=== PATIENT | female | born 1960 | race Caucasian/White ===

== ENCOUNTER 2017-02-11 20:17 | Emergency (ER) | payer OTHER, MEDICARE ==
[~2017-02-11] VITALS: Ht 152.4 cm; Wt 97.5 kg
[~2017-02-11 20:17] MED LIST: DELTASONE20 MG PO; GLIMEPIRIDE4 M1 PO; GUAIFENESIN-COD10 ML PO; IPRAT-ALBUT 0.5-3 ML INH; LEVOFLOXACIN500 M1 PO; LOSARTAN POTASS50 M1 PO; METFORMIN HCL1000 M1 PO; PEPCID20 M1 PO; PIOGLITAZONE HC45 M1 PO; PREDNISONE 10MG10 M1 PO; PREDNISONE50 MG PO; PROAIR HFA0.09 MG/Ac PO; PROMETHAZINE PO; PROMETHAZINE-C118 ML PO; PROVENTIL0.09 MG/A1 INH; VENTOLIN HFA18 GM INH; ZITHROMAX250 M2 PO; [UNRECOGNIZED DRUG - OTHER] PO
--- NOTE | 2017-02-11 20:43 | ED DYSPNEA/ASTHMA COMPLAINT ---
History of Present Illness General Chief Complaint: Dyspnea (COPD, CHF, Other) Stated Complaint: PT HAS SOB AND SWELLING OF BOTH LEG Source: patient Exam Limitations: no limitations Vital Signs & Intake/Output Vital Signs & Intake/Output Vital Signs Date Time Temp Pulse Resp B/P B/P Pulse O2 O2 Flow FiO2 Mean Ox Delivery Rate 02/11 2339 98.1 94 18 154/70 93 Room Air 02/11 2246 97.8 85 22 159/71 93 Room Air 02/11 2110 95 Room Air 02/11 2030 97.3 106 24 157/86 95 ED Intake and Output 02/12 0000 02/11 1200 Intake Total Output Total Balance Patient 215 lb Weight Allergies Coded Allergies: ibuprofen (From Advil) (Severe, HIVES 07/17/16) latex (Intermediate, RASH 07/17/16) methylprednisolone (From Solu-Medrol) (Intermediate, GI UPSET 07/17/16) Reconcile Medications Albuterol Sulfate (Ventolin Hfa) 90 MCG HFA.AER.AD 2 PUF INH Q4-6 PRN PRN WHEEZING Albuterol Sulfate (Ventolin Hfa) 90 MCG HFA.AER.AD 2 PUF INH Q4-6 PRN PRN SOB Cephalexin (Keflex) 500 MG CAPSULE 1 CAP PO 4 TIMES/DAY CELLULITIS Famotidine (Pepcid) 20 MG TABLET 1 TAB PO BID acid reflux Glimepiride 4 MG TABLET 1 TAB PO DAILY DM (Reported) Ipratropium/Albuterol Sulfate (Iprat-Albut 0.5-3(2.5) MG/3 Ml) 0.5 MG-3 MG (2.5 MG BASE)/3 ML AMPUL.NEB 1 INH INH BIDP PRN ASTHMA AND BRONCHITIS (Reported) Levofloxacin 500 MG TABLET 1 TAB PO DAILY BRONCHITIS (Reported) Losartan Potassium 50 MG TABLET 1 TAB PO DAILY B/P (Reported) Metformin HCl 1,000 MG TABLET 1 TAB PO BID DM (Reported) Pioglitazone HCl 45 MG TABLET 1 TAB PO DAILY DM (Reported) Prednisolone 15 MG/5 ML SOLUTION 10 ML PO QDAY ASTHMA Prednisone (Deltasone) 20 MG TABLET 3 TAB PO DAILY ASTHMA Promethazine HCl/Codeine (Promethazine-Codeine Syrup) 6.25 MG-10 MG/5 ML SYRUP 5 ML PO Q4-6 PRN cough Sulfamethoxazole/Trimethoprim (Bactrim Ds Tablet) 800 MG-160 MG TABLET 1 TAB PO BID CELLULITIS Triage Note: PER PT SEEN AT [facility] FOR SOB AND BLE SWELLING X 2-3 MONTHS BILAT LOWER EXTREMITIES LEGS RED WARM AND SWOLLEN, Triage Nurses Notes Reviewed? yes Onset: Gradual Duration: day(s): Timing: recent history Severity: mild, moderate Activities at Onset: none Prior Episodes/Possible Cause: occasional episodes Modifying Factors: Improves With: rest. Associated Symptoms: cough, wheezing, LEFT LEG REDNESS HPI: 56-year-old woman history of asthma referred from the urgent care center for left leg redness and swelling as well as cough and wheeze. The patient states that she has had coughing and wheezing for the past week or so. She continues to smoke. She has no fever chills chest pain or sputum. She also notes that her left lower extremity has had some redness and tenderness around the rajan for the past 2-3 weeks. It has slowly gotten worse. She is otherwise well and has no other concerns Past History Travel History Traveled to [place] past 21 day No Medical History Any Pertinent Medical History? 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 No Review of Systems Review of Systems Constitutional: Reports: no symptoms. EENTM: Reports: no symptoms. Respiratory: Reports: no symptoms. Cardiovascular: Reports: no symptoms. GI: Reports: no symptoms. Genitourinary: Reports: no symptoms. Musculoskeletal: Reports: no symptoms. Skin: Reports: no symptoms. Neurological/Psychological: Reports: no symptoms. Hematologic/Endocrine: Reports: no symptoms. Immunologic/Allergic: Reports: no symptoms. All Other Systems: Reviewed and Negative Physical Exam Physical Exam General Appearance: well developed/nourished, mild distress Head: atraumatic, normal appearance Eyes: Bilateral: normal appearance. Ears, Nose, Throat: normal pharynx, normal ENT inspection Neck: normal inspection, supple, full range of motion Respiratory: wheezing Cardiovascular: regular rate/rhythm Gastrointestinal: normal bowel sounds, soft, non-tender Extremities: LEFT LEG WITH 1+ PITTING EDEMA. dIFFUSE INDURATION APPROXIMATELY 15 CM X 10 CM. nO LYMPHANGITIC STREAKING. tHE AREA OF INDURATION AND ERYTHEMA IS SLIGHTLY TENDER TO PALPATION AND WARM. 2+ DISTAL PULSE Neurologic/Psych: no motor/sensory deficits, awake, alert, oriented x 3 Skin: intact, normal color, warm/dry Core Measures ACS in differential dx? No Severe Sepsis Present: No Septic Shock Present: No Progress Differential Diagnosis: copd VERSUS ASTHMA VERSUS chf. pATIENT ALSO LIKELY HAS CELLULITIS i DOUBT dvt. Plan of Care: Orders Procedure Date/time Status TROPONIN LEVEL 02/11 2041 Complete D-DIMER 02/11 2041 Complete COMPREHENSIVE METABOLIC PANEL 02/11 2041 Complete CBC WITHOUT DIFFERENTIAL 02/11 2041 Complete EKG 02/11 2019 Active Laboratory Tests 02/11/172109: Anion Gap 11, Estimated GFR > 60, BUN/Creatinine Ratio 25.0, Glucose 168 H, Calcium 9.6, Total Bilirubin 0.9, AST 24, ALT 39, Alkaline Phosphatase 76, Troponin I < 0.01, Total Protein 6.7, Albumin 4.1, Globulin 2.6, Albumin/ Globulin Ratio 1.6, D-Dimer High Sensitivty 270 H, CBC w Diff NO MAN DIFF REQ, RBC 3.65 L, MCV 89.5, MCH 29.3, RDW 17.4 H, MPV 9.1, Gran % 73.0, Lymphocytes % 21.5, Monocytes % 4.2, Eosinophils % 1.2, Basophils % 0.1, Absolute Granulocytes 8.3 H, Absolute Lymphocytes 2.5, Absolute Monocytes 0.5, Absolute Eosinophils 0.1, Absolute Basophils 0, PUBS MCHC 32.7 L Diagnostic Imaging: Viewed by Me: Radiology Read, CT Scan. Discussed w/RAD: Radiology Read, CT Scan. Radiology Impression: ct angio... no pe... air trapping... full report below. CXR Impression: no acute abnormality, no infiltrates, normal size heart, normal mediastinum Initial ED EKG: normal axis, normal intervals, normal p-waves, normal QRS complex, normal sinus rhythm Comments: PATIENT: RAFAELA SOLIS PRESENT AGE: 56 PATIENT ACCOUNT NO: [id number] : 56 LOCATION: [facility] ORDERING PHYSICIAN: OTF RAMEY MD SERVICE DATE: 02/11/17 EXAM TYPE: CAT - CTA CHEST-PULMONARY EMBOLISM EXAMINATION: CT ANGIOGRAM OF THE CHEST WITH AND WITHOUT CONTRAST (CT PULMONARY ANGIOGRAM FOR PE) CLINICAL INFORMATION: Dyspnea, positive d-dimer COMPARISON: Chest x-ray from earlier today TECHNIQUE: Prior to contrast administration, noncontrast localization images were obtained. Subsequently, multidetector volumetric imaging was performed from the thoracic inlet to below the diaphragms following the administration of 95 mL Optiray 320 intravenous contrast. No contrast reaction reported. Sagittal, coronal, and MIP oblique sagittal reformatted images were obtained on the CT workstation, uploaded to PACS, and reviewed. Total exam dose-length product 524.66 mGy-cm. FINDINGS: QUALITY OF STUDY/CONTRAST BOLUS: Satisfactory PULMONARY ARTERIES: No central or segmental pulmonary emboli are seen. There is limited assessment of the distal vasculature secondary to respiratory motion artifact. THORACIC AORTA: No aneurysm or dissection. Scattered atherosclerotic calcifications are present. LUNG: There is a mosaic attenuation pattern of lung attenuation, suggesting heterogeneous air trapping, predominantly at the bases. No dense consolidation is seen. PLEURA: No pleural effusion or pneumothorax. MEDIASTINUM: The visualized thyroid gland is unremarkable. There are multiple scattered mediastinal lymph nodes measuring up to the upper limits of normal in size. Cardiac size appears mildly enlarged. No significant pericardial effusion. Coronary artery calcifications are present. No evidence of septal bowing or right heart strain. CHEST WALL/AXILLA: No axillary or internal mammary lymphadenopathy. OSSEOUS STRUCTURES: Degenerative changes are noted in the spine. UPPER ABDOMEN: Unremarkable. No reflux of contrast into the hepatic veins to suggest elevated right heart pressures. IMPRESSION: 1. No pulmonary embolus identified. 2. Heterogeneous air trapping, most prominently at the lung bases. No dense consolidation. 3. Multiple mildly prominent mediastinal lymph nodes which are nonspecific and may be reactive. VTE: negative DICTATED BY: GE SOLO MD DATE/TIME DICTATED:02/11/172341 CERTIFIED ADAPTIVE PHYSICAL EDUCATOR:MICHAEL DATE/TIME TRANSCRIBED:02/11/172341 CONFIDENTIAL, DO NOT COPY WITHOUT APPROPRIATE AUTHORIZATION. <Electronically signed in Other Vendor System> SIGNED BY: GE SOLO MD 02/11/17 [id number] PATIENT: RAFAELA SOLIS PRESENT AGE: 56 PATIENT ACCOUNT NO: [id number] : 56 LOCATION: [facility] ORDERING PHYSICIAN: OTF RAMEY MD SERVICE DATE: 02/11/17 EXAM TYPE: RAD - XRY-PORTABLE CHEST XRAY EXAMINATION: XR PORTABLE CHEST CLINICAL INFORMATION: Dyspnea. COMPARISON: Chest x-ray 07/17/2016. TECHNIQUE: Portable frontal view of the chest was obtained. FINDINGS: The lungs are well-expanded and clear without focal airspace consolidation. No pleural effusions or pneumothoraces are identified. Cardiomediastinal contours are stable. Soft tissues are unremarkable. No acute osseous abnormality is identified. IMPRESSION: No acute pulmonary process. DICTATED BY: ЕКАТЕРИНА KRISHNA MD DATE/TIME DICTATED:02/11/172114 CERTIFIED ADAPTIVE PHYSICAL EDUCATOR:MICHAEL DATE/TIME TRANSCRIBED:02/11/172114 CONFIDENTIAL, DO NOT COPY WITHOUT APPROPRIATE AUTHORIZATION. <Electronically signed in Other Vendor System> SIGNED BY: ЕКАТЕРИНА KRISHNA MD 02/11/172121 Departure Departure Disposition: HOME OR SELF CARE Condition: Stable Clinical Impression Primary Impression: Cellulitis Secondary Impressions: Bronchitis Referrals: TY PIZARRO MD Departure Forms: Customer Survey General Discharge Information Prescriptions: Current Visit Scripts Cephalexin (Keflex) 1 CAP PO 4 TIMES/DAY #40 CAP Sulfamethoxazole/Trimethoprim (Bactrim Ds Tablet) 1 TAB PO BID #20 TAB Prednisolone 10 ML PO QDAY #40 ML Albuterol Sulfate (Ventolin Hfa) 2 PUF INH Q4-6 PRN PRN WHEEZING #1 INHAL Ref 1 Comments pt feeling well at discharge... pt will return on tuesday evening to assess her lert lower extremitiy cellulitis.pt with a benign workup and otherwise safe for discharge. Critical Care Note Critical Care Note Critical Care Time: non-applicable
[2017-02-11] MEDS ORDERED: KEFLEX500 M1 PO (21:11)
[2017-02-11] MEDS ORDERED: PREDNISOLO15 MG/5 M4 PO (21:11)
[2017-02-11] MEDS ORDERED: BACTRIM DS TAB1 EACH PO (21:11)
[2017-02-11] MEDS ORDERED: VENTOLIN HFA18 GM INH (21:11)
[2017-02-11 21:16] LABS: ABSOLUTE BASOPHIL COUNT 0 /CUMM (0.0-0.2); ABSOLUTE EOSINOPHIL COUNT 0.1 /CUMM (0.0-0.7); ABSOLUTE GRANULOCYTE CT 8.3 /CUMM (1.4-6.5); ABSOLUTE LYMPH COUNT 2.5 /CUMM (1.2-3.4); ABSOLUTE MONOCYTE COUNT 0.5 /CUMM (0.10-0.60); BASOPHIL % 0.1 % (0.0-2.0); EOSINOPHIL % 1.2 % (0-5); HEMATOCRIT 32.6 % (37-47); MEAN CORPUSCULAR HGB 29.3 PG (27.0-31.0); MEAN CORPUSCULAR HGB CONC 32.7 G/DL (33.0-37.0); MEAN CORPUSCULAR VOLUME 89.5 FL (81.0-99.0); MEAN PLATELET VOLUME 9.1 FL (7.4-10.4); PLATELET COUNT 235 /CUMM (130-400); RBC DISTRIBUTION WIDTH 17.4 % (11.5-14.5); RED BLOOD CELL CT 3.65 /CUMM (4.20-5.40); WHITE BLOOD CELL COUNT 11.4 /CUMM (4.8-10.8)
--- NOTE | 2017-02-11 21:22 | RADIOLOGY REPORT ---
EXAMINATION: XR PORTABLE CHEST CLINICAL INFORMATION: Dyspnea. COMPARISON: Chest x-ray 07/17/2016. TECHNIQUE: Portable frontal view of the chest was obtained. FINDINGS: The lungs are well-expanded and clear without focal airspace consolidation. No pleural effusions or pneumothoraces are identified. Cardiomediastinal contours are stable. Soft tissues are unremarkable. No acute osseous abnormality is identified. IMPRESSION: No acute pulmonary process.
[2017-02-11 23:39] VITALS: BP 154/70
--- NOTE | 2017-02-11 23:59 | CT SCAN REPORT ---
EXAMINATION: CT ANGIOGRAM OF THE CHEST WITH AND WITHOUT CONTRAST (CT PULMONARY ANGIOGRAM FOR PE) CLINICAL INFORMATION: Dyspnea, positive d-dimer COMPARISON: Chest x-ray from earlier today TECHNIQUE: Prior to contrast administration, noncontrast localization images were obtained. Subsequently, multidetector volumetric imaging was performed from the thoracic inlet to below the diaphragms following the administration of 95 mL Optiray 320 intravenous contrast. No contrast reaction reported. Sagittal, coronal, and MIP oblique sagittal reformatted images were obtained on the CT workstation, uploaded to PACS, and reviewed. Total exam dose-length product 524.66 mGy-cm. FINDINGS: QUALITY OF STUDY/CONTRAST BOLUS: Satisfactory PULMONARY ARTERIES: No central or segmental pulmonary emboli are seen. There is limited assessment of the distal vasculature secondary to respiratory motion artifact. THORACIC AORTA: No aneurysm or dissection. Scattered atherosclerotic calcifications are present. LUNG: There is a mosaic attenuation pattern of lung attenuation, suggesting heterogeneous air trapping, predominantly at the bases. No dense consolidation is seen. PLEURA: No pleural effusion or pneumothorax. MEDIASTINUM: The visualized thyroid gland is unremarkable. There are multiple scattered mediastinal lymph nodes measuring up to the upper limits of normal in size. Cardiac size appears mildly enlarged. No significant pericardial effusion. Coronary artery calcifications are present. No evidence of septal bowing or right heart strain. CHEST WALL/AXILLA: No axillary or internal mammary lymphadenopathy. OSSEOUS STRUCTURES: Degenerative changes are noted in the spine. UPPER ABDOMEN: Unremarkable. No reflux of contrast into the hepatic veins to suggest elevated right heart pressures. IMPRESSION: 1. No pulmonary embolus identified. 2. Heterogeneous air trapping, most prominently at the lung bases. No dense consolidation. 3. Multiple mildly prominent mediastinal lymph nodes which are nonspecific and may be reactive. VTE: negative
[2017-02-12] MEDS ORDERED: GLIMEPIRIDE4 M1 PO (13:38)
[2017-02-12] MEDS ORDERED: IPRAT-ALBUT 0.5-3 ML IH (13:39)
[2017-02-12] MEDS ORDERED: ACETAMINOPHEN500 M4 PO (13:39)
[2017-02-12] MEDS ORDERED: ALEVE220 M1 PO (13:39)
== END 2017-02-12 00:28 ==
LOC: ERH 20:17
PROVIDERS: Pediatrics
DX: J40 Bronchitis, not specified as acute or chronic (principal); L03.116 Cellulitis of left lower limb
CPT/HCPCS: 1263; 93005; 93010; 96374; J0690; J1100

== ENCOUNTER 2017-02-12 11:34 | Inpatient (IN) | payer OTHER, MEDICARE ==
[~2017-02-12] VITALS: Ht 152.4 cm; Wt 97.3 kg
[~2017-02-12 11:34] MED LIST changes: +BACTRIM DS TAB1 EACH PO; +KEFLEX500 M1 PO; +PREDNISOLO15 MG/5 M4 PO
--- NOTE | 2017-02-12 11:39 | NUR ---
TRIAGE: 56 Y/O FEMALE RETURNS TO THE EMERGENCY DEPARTMENT INSTRUCTED BY DR RAMEY FOR A LEFT VENOUS DOPPLER OF THE LOWER EXTREMITIES TO RULE OUT DVT SECONDARY TO LEFT LOWER EXTREMITY SWELLING. HAS OUTPATIENT REQUISITION IN HAND AT PRESENT. TRANSPORT BY WHEELCHAIR.
--- NOTE | 2017-02-12 12:08 | NUR ---
RECIEVED TO ROOM 21.
--- NOTE | 2017-02-12 12:12 | NUR ---
PT UP TO RESTROOM TO VOID
--- NOTE | 2017-02-12 12:23 | NUR ---
SOB WITH EXERTION . SATS DROPPED LOW 91, UP TO 94% WITH REST. PT WITH NON PRODUCTIVE HACKING COUGH. PALPABLE PEDAL PULSES WITH SOME LEG SWELLING NOTED
--- NOTE | 2017-02-12 12:33 | ED UPPER/LOWER EXTREMITY COMPL ---
History of Present Illness General Chief Complaint: Lower Extremity Problems Stated Complaint: BILATERAL LEG SWELLING Source: patient, old records Exam Limitations: no limitations Vital Signs & Intake/Output Vital Signs & Intake/Output Vital Signs Date Time Temp Pulse Resp B/P B/P Pulse O2 O2 Flow FiO2 Mean Ox Delivery Rate 02/12 1412 95 Nasal 2.0L Cannula 02/12 1332 98.6 98 21 122/78 97 Nasal 2.0L Cannula 02/12 1223 Room Air 02/12 1137 98.5 96 18 129/80 97 Room Air Room Air Allergies Coded Allergies: ibuprofen (From Advil) (Severe, HIVES 07/17/16) latex (Intermediate, RASH 07/17/16) methylprednisolone (From Solu-Medrol) (Intermediate, GI UPSET 07/17/16) Reconcile Medications Acetaminophen (Unknown Strength) TABLET (Unknown Dose) PO PRN PRN PAIN ( Reported) Albuterol Sulfate (Ventolin Hfa) 90 MCG HFA.AER.AD 2 PUF INH Q4-6 PRN PRN WHEEZING Cephalexin (Keflex) 500 MG CAPSULE 1 CAP PO 4 TIMES/DAY CELLULITIS Famotidine (Pepcid) 20 MG TABLET 1 TAB PO BID acid reflux Glimepiride 4 MG TABLET 1 TAB PO BID DIABETES (Reported) Ipratropium/Albuterol Sulfate (Iprat-Albut 0.5-3(2.5) MG/3 Ml) 0.5 MG-3 MG (2.5 MG BASE)/3 ML AMPUL.NEB 1 AMP IH 4 TIMES/DAY WHEEZING/SOB (Reported) Losartan Potassium 50 MG TABLET 1 TAB PO DAILY B/P (Reported) Metformin HCl 1,000 MG TABLET 1 TAB PO BID DM (Reported) Naproxen Sodium (Aleve) (Unknown Strength) CAPSULE (Unknown Dose) PO PRN PRN CHRONIC BACK PAIN (Reported) Pioglitazone HCl 45 MG TABLET 1 TAB PO DAILY DM (Reported) Triage Note: TRIAGE: 56 Y/O FEMALE RETURNS TO THE EMERGENCY DEPARTMENT INSTRUCTED BY DR RAMEY FOR A LEFT VENOUS DOPPLER OF THE LOWER EXTREMITIES TO RULE OUT DVT SECONDARY TO LEFT LOWER EXTREMITY SWELLING. HAS OUTPATIENT REQUISITION IN HAND AT PRESENT. TRANSPORT BY WHEELCHAIR. Triage Nurses Notes Reviewed? yes HPI: 56F PMH HTN, T2DM WITH 3 DAYS OF PROGRESSIVE DYSPNEA ON EXERTION, GENERALIZED WEAKNESS, NON-PRODUCTIVE COUGH, EVALUATED IN ED 1 DAY AGO, NEGATIVE CTA CHEST FOR PE, RETURNED TODAY FOR LE DOPPLER WHICH WAS NEGATIVE FOR DVT. HOWEVER, PATIENT 83% AT REST WITH SEVERE DYSPNEA WITH MINIMAL EXERTION. WALKED TO BATHROOM AND APPEARED SEVERELY SHORT OF BREATH AND LIGHTHEADED, BILATERAL WHEEZING ON EXAM, BILATERAL LOWER EXTREMITY PITTING EDEMA TO KNEES. Past History Travel History Traveled to [place] past 21 day No Medical History Any Pertinent Medical History? 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 No Review of Systems Review of Systems Constitutional: Reports: see HPI. EENTM: Reports: no symptoms. Respiratory: Reports: see HPI. Cardiovascular: Reports: see HPI. Gastrointestinal/Abdominal: Reports: no symptoms. Genitourinary: Reports: no symptoms. Musculoskeletal: Reports: no symptoms. Skin: Reports: no symptoms. Neurological/Psychological: Reports: no symptoms. Hematologic/Endocrine: Reports: no symptoms. Immunological: Reports: no symptoms. All Other Systems: Reviewed and Negative Physical Exam Physical Exam General Appearance: well developed/nourished, alert, awake, moderate distress Head: atraumatic, normal appearance Ears, Nose, Throat: normal pharynx, normal ENT inspection Neck: normal inspection, supple Cardiovascular/Respiratory: regular rate/rhythm, respiratory distress, wheezing Gastrointestinal: NORMAL Back: normal inspection, normal range of motion Neurologic/Tendon: normal sensation, normal motor functions Skin: intact Progress Differential Diagnosis: arterial insufficiency, cellulitis, CHF, compartment syndrome, contusion, dislocation, DVT, fracture, gout, septic arthritis, sprain, tendon injury, COPD, ASTHMA, PE Plan of Care: Orders Procedure Date/time Status Consistent Carbohydrate 2 02/12 D Active OXYGEN SETUP (GEN) 02/12 1402 Active Saline Lock 02/12 1402 Active Misc Message 02/12 1402 Active ED Holding Orders 02/12 1402 Active Admit to inpatient 02/12 1402 Active Vital Signs 02/12 1402 Active Activity/Ambulation 02/12 1402 Active Code Status 02/12 1402 Active AEROSOL (GEN) 02/12 1400 Complete Patient Data 02/12 1358 Active Add-on Test (ER Only) 02/12 1356 Active TRC EVALUATION (GEN) 02/12 1255 Active XRY-CHEST XRAY, PA AND LATERAL 02/12 1255 Active CBC WITHOUT DIFFERENTIAL 02/12 1255 Complete BASIC ELECTROLYTES PLUS BUN&CR 02/12 1255 Complete EKG 02/12 1255 Active Current Medications Sig/John Start time Last Medication Dose Stop Time Status Admin Azithromycin 500 MG DAILY 02/12 1402 UNVr (Zithromax) Sodium Chloride 250 ML (Normal Saline 0.9%) Methylprednisolone 125 MG ONCE ONE 02/12 1300 CAN (Solu Medrol) 02/12 1301 Laboratory Tests 02/12/17 1320: Anion Gap 12, Estimated GFR > 60, BUN/Creatinine Ratio 23.3, CBC w Diff NO MAN DIFF REQ, RBC 3.80 L, MCV 89.4, MCH 29.3, RDW 17.3 H, MPV 9.9, Gran % 91.5 H, Lymphocytes % 6.7 L, Monocytes % 1.6 L, Eosinophils % 0, Basophils % 0.2, Absolute Granulocytes 12.2 H, Absolute Lymphocytes 0.9 L, Absolute Monocytes 0.2, Absolute Eosinophils 0, Absolute Basophils 0, PUBS MCHC 32.8 L WILL ADMIT TO INPATIENT FOR HYPOXIA, SEVERE DYSPNEA, LIKELY COPD EXACERBATION WITH LOWER EXTREMITY EDEMA. WILL OBTAIN CBC, BEP, BNP, CXR, TRC/NEBULIZER TREATMENTS, PREDNISONE (PATIENT ALLERGIC TO SOLUMEDROL), AZITHROMYCIN, LASIX. (MELVA CRUZ,DEJAN) Diagnostic Imaging: Viewed by Me: Radiology Read. Discussed w/RAD: Radiology Read. Radiology Impression: PATIENT: RAFAELA SOLIS PRESENT AGE: 56 PATIENT ACCOUNT NO: [id number] : 56 LOCATION: [facility] ORDERING PHYSICIAN: DEJAN FRYE MD SERVICE DATE: 02/12/17 EXAM TYPE: US - US -UNILATERAL VENOUS DOPPLER EXAMINATION: US TRIPLEX LOWER EXTREMITY, LEFT CLINICAL INFORMATION: Left lower extremity swelling and tenderness. COMPARISON: None. TECHNIQUE: Color-flow triplex imaging with spectral analysis and compression Doppler were performed on the lower extremity. FINDINGS: Respiratory variation, normal compression and augmented flow are noted throughout the left lower extremity. The visualized common femoral vein, proximal greater saphenous vein, femoral vein, profunda femoral vein, popliteal vein and visualized mid calf venous segments show no evidence of deep venous thrombosis. There is no Hanna's cyst. IMPRESSION: Normal triplex scan without evidence of deep venous thrombosis involving the lower extremity. Initial ED EKG: NSR Prior EKG: unchanged Departure Departure Time of Disposition: 1421 Disposition: STILL A PATIENT Condition: Stable Clinical Impression Primary Impression: Dyspnea on exertion Secondary Impressions: Acute exacerbation of COPD with asthma, Acute hypoxemic respiratory failure, Hypervolemia Referrals: REBECCA SANCHEZ,EDMUND Moy (PCP/Family) Departure Forms: Customer Survey General Discharge Information Admission Note Spoke With: SUSANNA CRUZ,RUBEN Rothman Documentation of Exam: Documentation of any treatments & extenuating circumstances including Concerns Regarding Discharge (functional status, medication knowledge or non-compliance, living conditions, etc.) that warrant an admission rather than observation: SEVERE DYSPNEA ON MINIMAL EXERTION, UNABLE TO CARE FOR SELF OR PERFORM ADL'S DUE TO DYSPNEA, HYPOXIC TO 83% ON ROOM AIR, HIGH RISK FOR RESPIRATORY FAILURE, POTENTIAL CHF AND COPD WILL REQUIRE PULMONARY EVALUATION, NEBULIZER TREATMENTS, ANTIBIOTICS, ECHOCARDRIOGRAM, STEROIDS
--- NOTE | 2017-02-12 12:39 | NUR ---
PT AMBULATED IN HALLS ON ROOM AIR. PT BECAME INCREASING SOB WITH WALK, SATS STARTED AT 94 BUT DROPPED LOW 86. SATS RECOVERED TO [address] FRYE NOTIFIED. PT PLACED ON 2 LITERS OF OXYGEN. TAKEN FOR ULTRASOUND. PT NOTIFIED SHE WILL BE ADMITTED TO HOSPITAL
--- NOTE | 2017-02-12 13:15 | ULTRASOUND REPORT ---
EXAMINATION: US TRIPLEX LOWER EXTREMITY, LEFT CLINICAL INFORMATION: Left lower extremity swelling and tenderness. COMPARISON: None. TECHNIQUE: Color-flow triplex imaging with spectral analysis and compression Doppler were performed on the lower extremity. FINDINGS: Respiratory variation, normal compression and augmented flow are noted throughout the left lower extremity. The visualized common femoral vein, proximal greater saphenous vein, femoral vein, profunda femoral vein, popliteal vein and visualized mid calf venous segments show no evidence of deep venous thrombosis. There is no Hanna's cyst. IMPRESSION: Normal triplex scan without evidence of deep venous thrombosis involving the lower extremity.
[2017-02-12] MEDS ORDERED: GLIMEPIRIDE4 M1 PO (13:38)
[2017-02-12] MEDS ORDERED: ACETAMINOPHEN500 M4 PO (13:39)
[2017-02-12] MEDS ORDERED: IPRAT-ALBUT 0.5-3 ML IH (13:39)
[2017-02-12] MEDS ORDERED: ALEVE220 M1 PO (13:39)
--- NOTE | 2017-02-12 13:39 | NUR ---
IV EST, MEDICATED PER EMAR. RT NOTIFIED FOR NEB TX.
[2017-02-12 13:50] LABS: ABSOLUTE BASOPHIL COUNT 0 /CUMM (0.0-0.2); ABSOLUTE EOSINOPHIL COUNT 0 /CUMM (0.0-0.7); ABSOLUTE GRANULOCYTE CT 12.2 /CUMM (1.4-6.5); ABSOLUTE LYMPH COUNT 0.9 /CUMM (1.2-3.4); ABSOLUTE MONOCYTE COUNT 0.2 /CUMM (0.10-0.60); BASOPHIL % 0.2 % (0.0-2.0); EOSINOPHIL % 0 % (0-5); GRANULOCYTE % 91.5 % (42.2-75.2); MEAN CORPUSCULAR HGB 29.3 PG (27.0-31.0); MEAN CORPUSCULAR HGB CONC 32.8 G/DL (33.0-37.0); MEAN CORPUSCULAR VOLUME 89.4 FL (81.0-99.0); MEAN PLATELET VOLUME 9.9 FL (7.4-10.4); PLATELET COUNT 238 /CUMM (130-400); RBC DISTRIBUTION WIDTH 17.3 % (11.5-14.5); WHITE BLOOD CELL COUNT 13.3 /CUMM (4.8-10.8)
--- NOTE | 2017-02-12 13:55 | NUR ---
RT AT BEDSIDE FOR NEB. PT AMBULATORY TO/FROM RESTROOM ON RA WITH OK FROM DR FRYE, SOME LINDER, RECOVERS IN 1-2MIN.
--- NOTE | 2017-02-12 14:03 | NUR ---
NEB TX IN PROGRESS.
--- NOTE | 2017-02-12 14:13 | Admission Certification ---
Admission Certification Certification Statement - As attending physician, I certify that at the time of - admission, based on clinical presentation, severity of - symptoms, need for further diagnostic testing and - therapeutic interventions, and risk of adverse outcomes - without in-hospital treatment, in my clinical assessment, - this patient requires an acute hospital stay for a minimum - of two nights or longer. I have also considered psychsocial - factors such as support system, advanced age, financial - issues, cognitive issues, and failed out-patient treatments, - past re-admission history, safety of patient, and lack of - compliance as applicable. Specific rationale supporting this admission is: Shortness of breath and bilateral leg edema. Probable undiagnosed COPD and questionable CHF
--- NOTE | 2017-02-12 14:17 | History & Physical ---
LIDIA CRUZ,[facility] 02/12/17 1411: General Information and HPI MD Statement: I have seen and personally examined RAFAELA DECKER and documented this H&P. The patient is a 56 year old F who presented with a patient stated chief complaint of Lower extremity Swelling and dyspnea. Source of Information: patient, family, old records Exam Limitations: no limitations History of Present Illness: Ms Decker is a 56-year-old female with past medical history of chronic back pain, fibromyalgia, diabetes and asthma who presented to the emergency department on complaining of worsening shortness of breath. Patient was seen at the ED at [facility] on 02/11/2017. Prior to coming into the emergency department yesterday she was seen at an urgent care who prompted her to come to the emergency department. She was worked up for a pulmonary embolism and the results of these were negative. She was subsequently sent home and given instructions to come back to the ED for a Doppler of the lower extremities. While at the emergency department this morning she desaturated to 86% on room air. Mrs. Decker states that over the last 2 weeks she has continued to develop a worsening cough. Cough has been dry and nonproductive. The patient also reports dyspnea on exertion as well as paroxysmal nocturnal dyspnea, wheezing and increased wheezing. She also states that she's had occasional feeling of lightheadedness and a heavy chest. In addition to the above she also feels that her legs have gotten progressively large and she has felt recently that they were "going to pop". She recently saw an workers compensation analyst for back pain and subsequently tried to get some therapy for her symptoms. He follows up with the [facility] in [place]. Allergies/Medications Allergies: Coded Allergies: ibuprofen (From Advil) (Severe, HIVES 07/17/16) latex (Intermediate, RASH 07/17/16) methylprednisolone (From Solu-Medrol) (Intermediate, GI UPSET 07/17/16) Home Med list Acetaminophen (Unknown Strength) TABLET (Unknown Dose) PO PRN PRN PAIN ( Reported) Albuterol Sulfate (Ventolin Hfa) 90 MCG HFA.AER.AD 2 PUF INH Q4-6 PRN PRN WHEEZING Cephalexin (Keflex) 500 MG CAPSULE 1 CAP PO 4 TIMES/DAY CELLULITIS Famotidine (Pepcid) 20 MG TABLET 1 TAB PO BID acid reflux Glimepiride 4 MG TABLET 1 TAB PO BID DIABETES (Reported) Ipratropium/Albuterol Sulfate (Iprat-Albut 0.5-3(2.5) MG/3 Ml) 0.5 MG-3 MG (2.5 MG BASE)/3 ML AMPUL.NEB 1 AMP IH 4 TIMES/DAY WHEEZING/SOB (Reported) Losartan Potassium 50 MG TABLET 1 TAB PO DAILY B/P (Reported) Metformin HCl 1,000 MG TABLET 1 TAB PO BID DM (Reported) Naproxen Sodium (Aleve) (Unknown Strength) CAPSULE (Unknown Dose) PO PRN PRN CHRONIC BACK PAIN (Reported) Pioglitazone HCl 45 MG TABLET 1 TAB PO DAILY DM (Reported) Compliance With Home Meds: UNKNOWN Past History Travel History Traveled to [place] past 21 day No Medical History Neurological: NEUROPATHY EENT: NONE Cardiovascular: NONE Respiratory: asthma Gastrointestinal: NONE Hepatic: NONE Renal: NONE Musculoskeletal: chronic back pain, disk herniation, fibromyalgia Psychiatric: NONE Endocrine: diabetes Blood Disorders: NONE Cancer(s): NONE 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 . BROTHER, ; Cause: Myocardial infarction. Psychosocial History Where do you live? Home Who Do You Live With? child Services at Home: None Primary Language: Luxembourgish Smoking Status: Current Everyday Smoker (45 year smoking history) ETOH Use: occasional use Illicit Drug Use: denies illicit drug use Functional Ability ADLs Independent: dressing, eating, toileting, bathing. Ambulation: independent IADLs Independent: shopping, housework, finances, food prep, telephone, transportation , medication admin. Review of Systems Review of Systems Constitutional: Reports: see HPI. EENTM: Denies: blurred vision, visual changes, eye pain. Cardiovascular: Reports: edema, orthopena, palpitations, peripheral edema. Denies: see HPI, syncope. Respiratory: Reports: cough, orthopnea, short of breath, wheezing. Denies: hemoptysis, sputum production, stridor. GI: Denies: abdominal pain, bloating, constipation, diarrhea, distention, bowel incontinence, melena. Genitourinary: Denies: discharge, dysuria, frequency, hematuria, hesitation. Musculoskeletal: Denies: back pain, gout, joint pain, joint swelling, muscle pain, muscle stiffness. Skin: Denies: change in skin color, change in hair/nails, dryness, erythema, jaundice, lesions. Neurological/Psychological: Denies: anxiety, ataxia, cognitive dysfunction, confusion, depressed, dementia, emotional problems. Hematologic/Endocrine: Denies: bruising, bleeding, polyuria, polydipsia. Immunologic/Allergic: Denies: splenectomy, HIV/AIDS, lymphadenopathy, other. Exam & Diagnostic Data Last 24 Hrs of Vital Signs/I&O Vital Signs Date Time Temp Pulse Resp B/P B/P Pulse O2 O2 Flow FiO2 Mean Ox Delivery Rate 02/12 1412 95 Nasal 2.0L Cannula 02/12 1332 98.6 98 21 122/78 97 Nasal 2.0L Cannula 02/12 1223 Room Air 02/12 1137 98.5 96 18 129/80 97 Room Air Room Air Intake & Output 02/12 1600 02/12 0800 02/12 0000 Intake Total Output Total Balance Patient 97.522 kg Weight Weight Reported by Patient Measurement Method Physical Exam General Appearance Alert, Oriented X3, Cooperative Skin No Rashes Skin Temp/Moisture Exam: Warm/Dry HEENT Dry Mucous membrares Neck Supple, No JVD, No thryomegaly Lymphatic Cervical nl Cardiovascular Regular Rate, Normal S1, Normal S2, Tachcardic Lungs Clear to Auscultation, Increased BS. Bibasillar Crackles. Abdomen Normal Bowel Sounds, Soft, No Tenderness Neurological Normal Speech, Strength at 5/5 X4 Ext Extremities No Clubbing, No Cyanosis, Normal Pulses, Edema 2+ Last 24 Hrs of Labs/Ramirez: Laboratory Tests 02/12/17 1320: Anion Gap 12, Estimated GFR > 60, BUN/Creatinine Ratio 23.3, [id number]-B-[id number] Pept Pending, CBC w Diff NO MAN DIFF REQ, RBC 3.80 L, MCV 89.4, MCH 29.3, RDW 17.3 H, MPV 9.9, Gran % 91.5 H, Lymphocytes % 6.7 L, Monocytes % 1.6 L, Eosinophils % 0, Basophils % 0.2, Absolute Granulocytes 12.2 H, Absolute Lymphocytes 0.9 L, Absolute Monocytes 0.2, Absolute Eosinophils 0, Absolute Basophils 0, PUBS MCHC 32.8 L Diagnostic Data EKG Results NSR 94 PR160 QTC 481 Other Results EXAM TYPE: US - US-UNILATERAL VENOUS DOPPLER EXAMINATION: US TRIPLEX LOWER EXTREMITY, LEFT CLINICAL INFORMATION: Left lower extremity swelling and tenderness. COMPARISON: None. TECHNIQUE: Color-flow triplex imaging with spectral analysis and compression Doppler were performed on the lower extremity. FINDINGS: Respiratory variation, normal compression and augmented flow are noted throughout the left lower extremity. The visualized common femoral vein, proximal greater saphenous vein, femoral vein, profunda femoral vein, popliteal vein and visualized mid calf venous segments show no evidence of deep venous thrombosis. There is no Hanna's cyst. IMPRESSION: Normal triplex scan without evidence of deep venous thrombosis involving the lower extremity. DICTATED BY: RICARDO KNOWLES MD Assessment/Plan Assessment: This is a 56-year-old female with significant past medical history for questionable asthma who presents to the emergency department on 02/12/2017 complaining of dyspnea and dyspnea on exertion as well as a nonproductive cough lasting last 2 weeks. Patient does not formally have a diagnosis of COPD however given her long time smoking history over 45 years she likely has this diagnosis based on clinical symptoms. COPD exacerbation Prednisone 60 mg. (Patient does have a allergy to methylprednisolone.) This can be tapered down once patient improves. Azithromycin for anti-inflammatory properties. Maintain saturations between 90-93%. Supplement via nasal cannula as necessary. Incentive spirometer. TRC nebulizer treatments as needed. Chest x-ray obtained on admission. If patietn desaturates consider ABG. Would likely require follow-up with lead mason tender as an outpatient.Consider advising patient for Pneumovax and smoking cessation as outpatient. Lower Extremity Edema Pro BNP: 2150 If patient does not improve overnight consider cardiology consultation in the a.m. . Echocardiogram to be done while admitted. Patient seems to have responded well to the initial dose of Lasix given in the emergency department as she states she had to void very frequently. Assess in am need for Lasix. Repeat BEP in Am Daily Weights. Strict Ins and Outs. History of diabetes Maintain blood sugar between 140 and 180. Hemoglobin A1c pending Levemir 8 Units BID Begin the patient on sliding scale NovoLog.TIDAC/HS Hold home antihypoglycemics: Pioglitiazone (is associated with Edema), Metformin (recently exposed to Dye) and Glimipride. History of nicotine dependence Nicotine patch 21 mg DVT Prophylaxis Lovenox Diet Diabetic diet. Minimize sodium. Patient is a full code As Ranked By This Provider Problem List: 1. Dyspnea on exertion 2. COPD exacerbation 3. Bronchitis 4. Asthma exacerbation Core Measures/Miscellaneous Acute Coronary Syndrome ACS Diagnosis: No Cerebrovascular Accident CVA/TIA Diagnosis: No Congestive Heart Failure CHF Diagnosis: No VTE (View Protocol) VTE Risk Factors: Acute medical illness No Mech VTE prophylaxis d/t: No contraindications No VTE Pharm Prophylaxis d/t: No contraindications VTE Diagnosis: No VTE Type: NONE VTE Confirmed by (Test): NONE Sepsis (View Protocol) Severe Sepsis Present: No Septic Shock Septic Shock Present: No Miscellaneous Documentation Attending Case Discussed With: SUSANNA CRUZ,RUBEN Rothman Primary Care Physician: EDMUND JUNIOR Patient sees these Specialists NA Level of Patient Care: General Medicine RUBEN MULLINS MD 02/12/17 1502: Attending MD Review Statement Attending Statement Attending MD Statement: examined this patient, discuss w/resident/PA/STAGE SET DESIGNER, agreed w/resident/PA/STAGE SET DESIGNER, reviewed EMR data (avail), reviewed images Attending Assessment/Plan: 56 year old female initially came to the ED on March 13 for shortness of breath and leg swelling. She had a CTA which was negative for a PE and she was discharged on an inhaler and antibiotics. She returned for ongoing shortness of breath and has acute hypoxemic respiratory failure as evidenced by a sat on exertion of 86% in the ED. Given her long-standing tobacco history I suspect that she has probable undiagnosed COPD and the shortness of breath is likely a COPD exacerbation. The leg swelling (Doppler negative for DVT) confuses matters and the diabetes and hypertension certainly put her at risk for congestive heart failure. She does not have any crackles on exam however I did see her after she got the Lasix in the ER. At this point will bring her into Gen med, give her steroids and by mouth azithromycin for probable COPD exacerbation with TRC and nebs [id number]. Get an echocardiogram and use Lasix when necessary watching her renal function closely. Continue her losartan but hold the glimepiride and metformin and hold pioglitazone as well given the edema. [facility]OHINI [facility]EN [facility] 02/12/17 1510: Resident Review Statement Resident Statement: examined this patient, discussed with communications intern, agreed with communications intern Other Findings: is a 56-year-old woman with a past medical history of asthma, fibromyalgia, diabetes mellitus, and neuropathy. She presents with shortness of breath and a non-productive cough for the past 3 weeks. She also complains of bilateral leg swelling for the past 2 months that seem to be worsening. She states that she often gets frequent attacks of shortness of breath in the spring and fall and this particular episode started 3 weeks ago when there was a lot of pollen in the air. She denies fevers, chills or malaise. However she has noted increased wheezing. She also noticed shortness of breath on exertion and leg swellings for the past 2 months, but denied chest pain, palpitations, lightheadedness, orthopnea, or PND. On account of her symptoms, she presented at an urgent care facility in [place] yesterday and was sent to [facility] yesterday on account of swelling and redness of her legs. She had a CT angiogram of her chest which was negative for pulmonary embolism. She was discharged home on by mouth Keflex, Bactrim and prednisolone (she has a reaction with methylprednisolone comprises of intractable vomiting). She returned to the ER today for planned ultrasound of her left leg showed no DVT. However on ambulation she desaturated to 86%. On account of her persistent shortness of breath, wheezing and dry cough she was admitted and received 1 mg of Lasix along with nebulizer treatments and IV azithromycin in the ER. Vital signs on admission show temperature of 98.5 F, pulse of 96 bpm, respiratory rate of 18, blood pressure of 129/80 mmHg, pulse oximetry of 97% on room air. Physical Exam General: Appearance Alert, not in distress, talks in complete sentences, with oxygen by Nasal canula at 2 L/min HEENT: EOMI, Mucous Membranes moist Neck: Full range of motion Cardiovascular: Normal S1, Normal S2, no murmurs Lungs: Good air entry bilaterally. No wheeze. Few fine crepitations in lung base bilaterally Abdomen: Obese, soft, No Tenderness, Normal Bowel Sounds Neurological: Nomal Speech, Strength 5/5 in bilateral lower and upper limbs. Extremities: +1 bilateral pitting edema up to mid rajan, left leg slightly erythematous, but no differential warmth. No tenderness in legs/shins or calves bilaterally. Vascular: Pulses Symmetrical, Skin is warm to touch Significant labs at admission CBC: WBC 13.3, hemoglobin 11.1, hematocrit 34 %, platelet 238. Sodium 135, potassium 4.6, carbon dioxide 20, anion gap 12, BUN 16, creatinine 0.6, ProBNP 2150 pg/ml (previous 401pg/ml in 2014), Troponin from 02/11 was negative <0.01. Imaging Chest Xray: Pending Problem list 1. COPD exacerbation 2. Concern for undiagnosed CHF from hypertensive heart diseas 3. Diabetes mellitus 4. Diabetic peripheral neuropathy involving feet 6. Hypertension 7. History of fibromyalgia Plan Admit to [facility] Chest X ray PO prednisone 60 mg daily and taper according to clinical response (Patient had adverse reaction to IV solumedrol in the past) TRC evaluation for nebulizer therapy Intranasal oxygen to keep SP O2>92% Start Symbicort inhaler low dose IV azithromycin 500 mg daily for bronchitis and antiinflamatory effect Would hold off on pulmonology involvement for now Echocardiogram to investigate EF and cardiac function. Will involve cardiology if echo shows signs of CHF Patient received IV lasix 20 mg in the ER. Will hold off on lasix for now and dose based on clinical assessment Monitor fluid input and output closely Daily weights Hold home medications for diabetes -Metformin (Post CTA dye), glimepiride and pioglitazone (Causes fluid retention and pedal edema) Start SC levemir 8 units BID Start SC Novolog sliding scale with bedtime coverage Accucheks TIDAC/HS Hba1c Continue losartan for hypertension Pain pathway: PO tylenol for mild pain, PO motrin for moderate pain and IV morphine for severe pain DVT prophylaxis with subcutaneous lovenox 40 mg daily Patient is FULL CODE STATUS
--- NOTE | 2017-02-12 14:41 | NUR ---
ZITHROMAX INFUSING. HOUSE STAFF AT BEDSIDE. SURGICAL DENTAL ASSISTANT AT BEDSIDE FOR 3RD TIME TO ATTEMPT XRAY (1ST TIME DURING EKG, 2ND IMMED PRIOR TO NEB TX AND NOW HOUSE STAFF REQUESTING XRAY BE DONE AFTER THEIR EVAL.) MEAL TRAY PROVIDED. AWAITING BED ASSIGNMENT.
--- NOTE | 2017-02-12 15:10 | NUR ---
ASSUMED CARE OF PT.
--- NOTE | 2017-02-12 15:28 | NUR ---
Emergency Dept UC Admit Note: To be admitted to [facility] by DR KAUR with COPD EXACERBATION as the diagnosis, to [facility] location. Nursing Leather Stretcher and admitting notified 02/12/17 at 1414 PT WILL GO TO ROOM 206-1
--- NOTE | 2017-02-12 15:35 | NUR ---
PT AMBULATED TO REST ROOM
--- NOTE | 2017-02-12 15:44 | PN- Student ---
Subjective Subjective: HPI Pt is a 56 yo F current smoker with a history of COPD, HTN, T2DM, GERD, disk herniation, and chronic back pain presening with 3 days of worsening shortness of breath on exersion associated with non-productive cough, orthopnea, PND, and swelling in the legs. She reports that her symptoms began 2 weeks ago with dry nasal passages and a mild non-productive cough. She then noticed increased swelling in the legs as well as orthopnea, PND multiple times a night, and worsening shortness of breath with exersion and decided to get evaluated. She denies sick contacts or recent travel. She came and got a CTA chest done yesterday which was negative for PE. She was asked to return today for a LE doppler which was negative for DVT but her saturation was found to be 83% at rest so a decision was made to admit. Her breathing has improved a bit from TRC/nebs and 2L oxygen in the ER but she got very short of breath after a short walk to the bathroom. She also complains of pain in the legs associated with the swelling and a burning sensation in the balls of her feet. Reports chest tightness, palpitations, and GERD when lying down. Denies fevers, chills, nausea, vomitting, diarrhea, changes in bowel movements, blood in the stool, or dysuria. PMHx COPD dx May 2016 T2DM dx 2004 multiple surgeries in the left foot herniated disk L4/L5 chronic back pain FH Mom - of esophogeal cancer Dad - of ID, Hx of DM Brother - of ID Brother - of liver ca Sister - of bone ca Brother - of MVA SH Pt lives at home with her , 5 adopted kids, and 2 cats. She is a current smoker and has been somking 1-1.5 ppd for 45 years. She rarely drinks and denies recreational drug use. Objective Objective: Allergies ibuprofen (From Advil) (Severe, HIVES 07/17/16) latex (Intermediate, RASH 07/17/16) methylprednisolone (From Solu-Medrol) (Intermediate, GI UPSET 07/17/16) Reconcile Medications Acetaminophen (Unknown Strength) TABLET (Unknown Dose) PO PRN PRN PAIN ( Reported) Albuterol Sulfate (Ventolin Hfa) 90 MCG HFA.AER.AD 2 PUF INH Q4-6 PRN PRN WHEEZING Cephalexin (Keflex) 500 MG CAPSULE 1 CAP PO 4 TIMES/DAY CELLULITIS Famotidine (Pepcid) 20 MG TABLET 1 TAB PO BID acid reflux Glimepiride 4 MG TABLET 1 TAB PO BID DIABETES (Reported) Ipratropium/Albuterol Sulfate (Iprat-Albut 0.5-3(2.5) MG/3 Ml) 0.5 MG-3 MG (2.5 MG BASE)/3 ML AMPUL.NEB 1 AMP IH 4 TIMES/DAY WHEEZING/SOB (Reported) Losartan Potassium 50 MG TABLET 1 TAB PO DAILY B/P (Reported) Metformin HCl 1,000 MG TABLET 1 TAB PO BID DM (Reported) Naproxen Sodium (Aleve) (Unknown Strength) CAPSULE (Unknown Dose) PO PRN PRN CHRONIC BACK PAIN (Reported) Pioglitazone HCl 45 MG TABLET 1 TAB PO DAILY DM (Reported) Current Medications Sig/John Start time Last Medication Dose Stop Time Status Admin Albuterol Sulfate 2 PUF Q4-6 PRN PRN 02/12 1530 AC (Ventolin) Azithromycin 500 MG DAILY@1500 02/12 1500 AC 02/12 (Zithromax) 1445 Sodium Chloride 250 ML (Normal Saline 0.9%) Losartan Potassium 50 MG DAILY 02/13 1000 AC (Cozaar) Methylprednisolone 125 MG ONCE ONE 02/12 1300 CAN (Solu Medrol) 02/12 1301 Vital Signs Date Time Temp Pulse Resp B/P Pulse O2 O2 Flow Ox Delivery Rate 02/12 1521 98.2 95 22 138/82 97 Nasal 2.0L Cannula 02/12 1412 95 Nasal 2.0L Cannula 02/12 1332 98.6 98 21 122/78 97 Nasal 2.0L Cannula 02/12 1137 98.5 96 18 129/80 97 Room Air Room Air Physical Exam General: well developed/nourished, alert, awake, NAD Head: NCAT Ears, Nose Throat: gross hearing intact, clear nasal passages, mild pharyngeal erythema Neck: supple, no carotid bruits, no goiter Cardiac: normal s1s2, no mrg, rrr Pulm: cta bl, limited chest expansion GI: nabs, no ttp, no guarding, no rebound Neuro: gross sensation and motor abilites intact Extremities: LE pitting edema, 1+ DP/PT pulses Results Results: Laboratory Tests 02/12/17 1320: Anion Gap 12, Estimated GFR > 60, BUN/Creatinine Ratio 23.3, Hemoglobin A1c Pending, [id number] Pept 2150 H, CBC w Diff NO MAN DIFF REQ, RBC 3.80 L , MCV 89.4, MCH 29.3, RDW 17.3 H, MPV 9.9, Gran % 91.5 H, Lymphocytes % 6.7 L , Monocytes % 1.6 L, Eosinophils % 0, Basophils % 0.2, Absolute Granulocytes 12.2 H, Absolute Lymphocytes 0.9 L, Absolute Monocytes 0.2, Absolute Eosinophils 0, Absolute Basophils 0, PUBS MCHC 32.8 L Assessment/Plan Assessment: Pt is a 56 yo F current smoker with a history of COPD, HTN, T2DM, GERD, disk herniation, and chronic back pain presening with 3 days of worsening shortness of breath on exersion associated with non-productive cough, orthopnea, PND, and swelling in the legs. Given her smoking status and Hx of COPD this is likely a COPD exacerbation complicated with acute decompensated heart failure seeing as her proBNP is elevated. CTA for PE and LE doppler for DVT were both negative. EKG showed NSR with normal axis and no T-wave changes. Plan: #1 shortness of breath Likely COPD exacerbation given her history. May also consider CAP. -continue TRC/nebs -prednisone -obtain CXR -avoid solumedrol (allergy) -monitor saturations #2 swelling in the legs Likely secondary to acute decompensated heart failure. -start Lasix -consider echocardiogram -repeat EKG #3 Hx of COPD -TRC/nebs -monitor saturations #4 T2DM -continue home meds #5 back pain -tylenol prn #6 Hx of GERD -continue Pepcid #7 DVP prophylaxis -Lovenox
--- NOTE | 2017-02-12 15:58 | NUR ---
PT TAKEN TO XRAY
--- NOTE | 2017-02-12 16:26 | RADIOLOGY REPORT ---
EXAMINATION: XR CHEST CLINICAL INFORMATION: Hypoxia and dyspnea. COMPARISON: None TECHNIQUE: 2 views of the chest were obtained. FINDINGS: Both lungs are fairly well-expanded and clear of acute process. The heart size and pulmonary vascularity is normal. There is mild dextroscoliosis of dorsal spine with moderate spondylosis. No lytic or sclerotic process seen. IMPRESSION: Unremarkable chest exam. Mild dextroscoliosis of dorsal spine.
--- NOTE | 2017-02-12 16:33 | NUR ---
PT MEDICATED WITH NOVOLOG AND LEVIMER AFTER EATING LATE LUNCH/EARLY DINNER. PT SENT TO GEN MED UNIT
[2017-02-12 16:35] VITALS: BP 136/72
--- NOTE | 2017-02-12 17:52 | NUR ---
NURSING NOTE; LATE ENTRY; PT ADMITTED TO ROOM 206-01 FROM THE ER AT 1635. PT AMBULATED TO BED WITH A STEADY GAIT FROM STRETCHER INDEPENDENTLY, PT ON 2LNC, EXERTIONAL SOB NOTED, VSS, DENIES CP, DENIES PAIN OR DICOMFORT, PT A/OX3, TRACE EDEMA NOTED TO BLE, SKIN INTACT, ORIENTED TO ROOM AND CALL [facility]GR[facility], BED IN LOWEST AND LOCKED POSITION, SAFETY MAINTAINED, NEEDS WITHIN REACH.
[2017-02-12 23:28] VITALS: BP 130/66
[2017-02-13 06:44] VITALS: BP 150/97
--- NOTE | 2017-02-13 07:06 | PN- Housestaff ---
LIDIA CRUZ,[facility] 02/13/17 0705: Subjective Follow-up For: Multifactorial Dyspnea, COPD Exacerbation Subjective: Ms Decker was seen and examined this morning. We spoke as she was coming to the end of her breathing treatment. She states that she feels better. She was able to get some rest last night. . Endorses a mild cough. non productive in nature.She continues to be on supplemenatl oxygen, saturating well on 1L She reports that her lower extrmity edema has decreased, although still states her legs feel full. She denies any fever, chills, nause or vomiting. Review of Systems Constitutional: Reports: see HPI. Objective Last 24 Hrs of Vital Signs/I&O Vital Signs Date Time Temp Pulse Resp B/P B/P Pulse O2 O2 Flow FiO2 Mean Ox Delivery Rate 02/13 1104 90 132/70 02/13 0800 95 Nasal 1.0L Cannula 02/13 0740 97 Nasal 1.0L Cannula 02/13 0644 97.5 88 20 150/97 100 Nasal 1.5L Cannula 02/13 0000 Nasal 2.0L Cannula 02/12 2328 98.0 105 20 130/66 98 Nasal 1.5L Cannula 02/12 2143 Nasal 2.0L Cannula 02/12 1635 Nasal 2.0L Cannula 02/12 1635 98.0 98 20 136/72 96 Nasal 2.0L Cannula 02/12 1521 98.2 95 22 138/82 97 Nasal 2.0L Cannula 02/12 1412 95 Nasal 2.0L Cannula 02/12 1332 98.6 98 21 122/78 97 Nasal 2.0L Cannula Intake & Output 02/13 1600 02/13 0800 02/13 0000 Intake Total Output Total Balance Patient 97.778 kg 98.883 kg Weight Weight Chair scale Reported by Patient Measurement Method Physical Exam General Appearance: Alert, Oriented X3, Cooperative HEENT: Mucous Membr. moist/pink Cardiovascular: Regular Rate, Normal S1, Normal S2 Lungs: Increased Expiratory Breath Sounds. Mild Crackles Right Lung Base Abdomen: Normal Bowel Sounds, Soft, No Tenderness Neurological: Normal Gait, Normal Speech, Strength at 5/5 X4 Ext Extremities: No Clubbing, No Cyanosis, Normal Pulses, No Tenderness/Swelling, LE Edema. R>L. Non Pitting Vascular: Normal Pulses Current Medications: Current Medications Sig/John Start time Last Medication Dose Route Stop Time Status Admin Acetaminophen 650 MG Q6P PRN 02/12 1600 AC PO Albuterol Sulfate 3 ML EVERY 4 HRS/AWAKE 02/13 0800 AC 02/13 INH 1202 Albuterol Sulfate 2 PUF Q4-6 PRN PRN 02/12 1530 AC INH Albuterol Sulfate 3 ML ONCE ONE 02/12 1315 DC 02/12 INH 02/12 1316 1348 Azithromycin 500 MG DAILY@1500 02/12 1500 AC 02/12 Sodium Chloride 250 ML IV 1445 Budesonide/ 2 PUF BID 02/12 1534 AC 02/13 Formoterol Fumarate INH 1107 Enoxaparin Sodium 40 MG DAILY 02/12 1534 AC 02/13 SC 1105 Furosemide 20 MG ONCE ONE 02/13 1015 DC IV 02/13 1016 Furosemide 0 .STK-MED ONE 02/12 1308 DC IV Furosemide 20 MG ONCE ONE 02/12 1300 DC 02/12 IV 02/12 1301 1334 Guaifenesin 10 ML Q6P PRN 02/13 1000 AC 02/13 PO 1106 Insulin Aspart 0 TIDAC 02/13 1200 AC SC Insulin Aspart 0 AT BEDTIME 02/12 2200 AC 02/12 SC 2118 Insulin Aspart 4 UNITS ONCE ONE 02/12 1715 DC 02/12 SC 02/12 1716 1719 Insulin Aspart 0 TIDAC 02/12 1700 DC 02/13 SC 0815 Insulin Detemir 10 UNITS BID 02/13 2200 AC 02/13 SC 1108 Insulin Detemir 8 UNITS BID 02/12 1545 DC 02/12 SC 2118 Ipratropium [place] 2.5 ML EVERY 4 HRS/AWAKE 02/13 0800 AC 02/13 INH 1202 Ipratropium [place] 2.5 ML ONCE ONE 02/12 1315 DC 02/12 INH 02/12 1316 1348 Losartan Potassium 50 MG DAILY 02/13 1000 AC 02/13 PO 1104 Methylprednisolone 125 MG ONCE ONE 02/12 1300 CAN IV 02/12 1301 Morphine Sulfate 2 MG Q4P PRN 02/12 1800 AC IV Nicotine 21 MG DAILY 02/12 1533 AC 02/13 TOP 1111 Oxycodone/ 1 TAB Q6P PRN 02/12 1600 AC Acetaminophen PO Prednisone 60 MG DAILY 02/13 1000 AC 02/13 PO 02/14 1001 1104 Prednisone 20 MG ONCE ONE 02/12 1545 DC 06/17 PO 02/12 1546 1719 Prednisone 0 .STK-MED ONE 02/12 1308 DC PO Prednisone 40 MG ONCE ONE 02/12 1300 DC 02/12 PO 02/12 1301 1334 Senna/Docusate Sodium 1 TAB DAILY NEEDED PRN 02/12 1615 AC PO Last 24 Hrs of Lab/Ramirez Results Last 24 Hrs of Labs/Mics: Laboratory Tests 02/13/17 0640: Anion Gap 12, Estimated GFR > 60, BUN/Creatinine Ratio 27.1 H, Triglycerides 198 H, Cholesterol 185, LDL Cholesterol, Calc 100, HDL Cholesterol 46, Cholesterol/HDL Ratio 4, CBC w Diff NO MAN DIFF REQ, RBC 3.91 L, MCV 91.2, MCH 29.6, RDW 17.6 H, MPV 10.0, Gran % 82.8 H, Lymphocytes % 13.0 L, Monocytes % 3.9, Eosinophils % 0.1, Basophils % 0.2, Absolute Granulocytes 16.8 H, Absolute Lymphocytes 2.7, Absolute Monocytes 0.8 H, Absolute Eosinophils 0, Absolute Basophils 0, PUBS MCHC 32.5 L 02/12/17 1320: Anion Gap 12, Estimated GFR > 60, BUN/Creatinine Ratio 23.3, Hemoglobin A1c Pending, Fgg-Z-Soiteqshdit Pept 2150 H, CBC w Diff NO MAN DIFF REQ, RBC 3.80 L , MCV 89.4, MCH 29.3, RDW 17.3 H, MPV 9.9, Gran % 91.5 H, Lymphocytes % 6.7 L , Monocytes % 1.6 L, Eosinophils % 0, Basophils % 0.2, Absolute Granulocytes 12.2 H, Absolute Lymphocytes 0.9 L, Absolute Monocytes 0.2, Absolute Eosinophils 0, Absolute Basophils 0, PUBS MCHC 32.8 L Assessment/Plan Assessment: This is a 56-year-old female with significant past medical history for questionable asthma who presented to the emergency department on 02/12/2017 complaining of dyspnea and dyspnea on exertion as well as a nonproductive cough lasting last 2 weeks. Patient does not formally have a diagnosis of COPD however given her long time smoking history over 45 years she likely has this diagnosis based on clinical symptoms. COPD exacerbation Continue Prednisone 60 mg. (Patient does have a allergy to methylprednisolone.) Azithromycin for anti-inflammatory properties likely 5 day duration. . Maintain saturations between 90-93%. Supplement via nasal cannula as necessary. Incentive spirometer. TRC nebulizer treatments as needed. Would likely require follow-up with vendette as an outpatient.Consider advising patient for Pneumovax and smoking cessation as outpatient. Lower Extremity Edema Echcardiogram done this am and will await results. May have a cardiology consultation in the AM. Patient seems to have responded well to the initial dose of Lasix given in the emergency department. Additional Lasix IV 20 MG. Assess in am need for Lasix. Repeat BEP in Am Daily Weights. Strict Ins and Outs. 1.105 kg decrease so far. History of diabetes Maintain blood sugar between 140 and 180. Hemoglobin A1c pending FS,244, Levemir 10 Units BID Continue the patient on sliding scale NovoLog.TIDAC/HS, tightened to Medium Dose SS Hold home antihypoglycemics: Pioglitiazone (is associated with Edema), Metformin (recently exposed to Dye) and Glimipride. #Leukocytosis WBC this am:20.3 Likley due to steroid use. Patient has remained afebrile. Will repeat CBC in AM. History of nicotine dependence Nicotine patch 21 mg DVT Prophylaxis Lovenox Diet Diabetic diet. Minimize sodium. Patient is a full code Problem List: 1. Acute exacerbation of COPD with asthma 2. Dyspnea on exertion 3. COPD exacerbation 4. Asthma exacerbation Pain Ratin Pain Location: No Pain Pain Goal: Remain pain free Pain Plan: Tylenol PRN Tomorrow's Labs & Rationales: CBC: Monitor WBC in the setting of Infection vs Steroid use BEP: Monitor electrolytes in the setting of diuresis RUBEN MULLISN MD 02/13/17 1013: Attending MD Review Statement Attending Statement Attending MD Statement: examined this patient, discuss w/resident/PA/EXECUTIVE MANAGER, agreed w/resident/PA/EXECUTIVE MANAGER, reviewed EMR data (avail), discussed with nursing Attending Assessment/Plan: Patient is still feeling quite short of breath and has this constant dry cough. She is a 56-year-old with a past medical history of diabetes and hypertension and long-standing tobacco history who is here with shortness of breath cough and leg swelling. CTA negative for PE but showed prominent interstitial markings and some air trapping. BNP was also elevated. We think she has probable COPD even though she doesn't carry a formal diagnosis of this and I've talked to her at length about it. She doesn't do well with IV Solu-Medrol so we have her on by mouth prednisone and I'll keep her at 60 mg a day with TRC with nebs and antibiotics for the possibility of a bronchitis. The echo is still pending, we did give her 1 dose of IV Lasix yesterday and will give her another dose of 20 mg IV today and follow-up closely in the echo. The diabetes is uncontrolled and I think that is due to the combination of us holding her oral diabetic meds and the steroids so we will increase the Levemir and tighten up the scale.
[2017-02-13 08:29] LABS: ABSOLUTE BASOPHIL COUNT 0 /CUMM (0.0-0.2); ABSOLUTE EOSINOPHIL COUNT 0 /CUMM (0.0-0.7); ABSOLUTE GRANULOCYTE CT 16.8 /CUMM (1.4-6.5); ABSOLUTE LYMPH COUNT 2.7 /CUMM (1.2-3.4); ABSOLUTE MONOCYTE COUNT 0.8 /CUMM (0.10-0.60); BASOPHIL % 0.2 % (0.0-2.0); EOSINOPHIL % 0.1 % (0-5); GRANULOCYTE % 82.8 % (42.2-75.2); HEMATOCRIT 35.7 % (37-47); MEAN CORPUSCULAR HGB 29.6 PG (27.0-31.0); MEAN CORPUSCULAR HGB CONC 32.5 G/DL (33.0-37.0); MEAN CORPUSCULAR VOLUME 91.2 FL (81.0-99.0); PLATELET COUNT 278 /CUMM (130-400); RBC DISTRIBUTION WIDTH 17.6 % (11.5-14.5); RED BLOOD CELL CT 3.91 /CUMM (4.20-5.40)
[2017-02-13 09:58] LABS: WHITE BLOOD CELL COUNT 20.3 /CUMM (4.8-10.8)
[2017-02-13 14:55] VITALS: BP 130/70
--- NOTE | 2017-02-13 17:13 | NUR ---
LATE ENTRY: PT'S FIMGERSTICK BLOOD SIUGAR 457. PT IN NO DISTRESS. DR. CLARK CONTACTED. TO ADMINISTER PRESCRIBED INSULIN AND TO RECHECK PT'S BLOOD SUGAR TWO HOURS AFTERWARDS. PT INFORMED. MST UPDATED. WILL CONT TO MONITOR.
--- NOTE | 2017-02-13 20:02 | NUR ---
LATE ENTRY: RN ATTEMPTED TO CONTACT DR. CLARK X2 WITH NO CALL BACK. MOD THEN CONTACTED REGARDING PT'S F/U FINGERSTICK LEVEL. PT'S BLOOD SUGAR ONLY DECREASED TO 425 (FROM 457) AFTER ADMINISTERING THE 12 UNITS OF NOVOLOG ORDERED. PT DID REPORT SHE HAD A "BROWNIE AND ICE CREAM" BUT REPORTS IT WAS ALLOWED BY DIETARY PER HER DIET ORDERS. MOD BERNY TO PLACE AN ADDITIONAL ONE TIME NOVOLOG ORDER. RN AMAL TO ADMINISTER AND TO RESUME CARE FOR PT AT THIS TIME. SAFETY MAINTAINED. PT IN NO DISTRESS.
[2017-02-13 22:41] VITALS: BP 122/60
--- NOTE | 2017-02-14 | NUR ---
AT 1999, ONE TIME 5 UNITS NOVOLOG WAS ADMINISTERED THE PATIENT BS CONTINUES TO BE HIGH. AT 2200, SCHEDULED 10 UNITS LEVEMIR AND 3 UNITS (PER SLIDING SCALE) NOVOLOG WERE ADMININSTERED. AT 0000 BS WAS 323. MD PATEL AWARE. NO FURTHER ORDERS AT THIS TIME.
--- NOTE | 2017-02-14 06:04 | NUR ---
THIS AM BS WAS 212
--- NOTE | 2017-02-14 06:16 | PN- Housestaff ---
LIDIA CRUZ,[facility] 02/14/17614: Subjective Follow-up For: COPD Exacerbation Subjective: Ms Decker was seen and examined this morning. Resting comfortably in bed. States that she feels remarkably better. Denies any issues overnight. States her cough is markedly improved although still endorses a mild cough which is still non-productive in nature. Patient reports that her lower extremity edema has improved. She saturating well and is on supplemental oxygen by nasal cannula 1 L. She denies any fever, chills, nausea, vomiting. Review of Systems Constitutional: Reports: see HPI. Objective Last 24 Hrs of Vital Signs/I&O Vital Signs Date Time Temp Pulse Resp B/P B/P Pulse O2 O2 Flow FiO2 Mean Ox Delivery Rate 02/14 619 97.4 81 20 154/88 95 02/14 0000 96 Nasal 1.0L Cannula 02/13 2241 98.2 99 20 122/60 94 Nasal 1.0L Cannula 02/13 1550 96 Nasal 1.0L Cannula 02/13 1455 97.8 95 18 130/70 95 02/13 1104 90 132/70 02/13 0800 95 Nasal 1.0L Cannula 02/13 0740 97 Nasal 1.0L Cannula Intake & Output 02/14 0800 02/14 0000 02/13 1600 Intake Total 400 625 Output Total Balance 400 625 Intake, IV 275 Intake, Oral 400 350 Patient 97.778 kg Weight Weight Chair scale Measurement Method Physical Exam General Appearance: Alert, Oriented X3, Cooperative Cardiovascular: Regular Rate, Normal S1, Normal S2 Lungs: Clear to Auscultation, Mild crackles Right Lung Base Abdomen: Normal Bowel Sounds, Soft, No Tenderness Neurological: Normal Gait Extremities: No Edema Current Medications: Current Medications Sig/John Start time Last Medication Dose Route Stop Time Status Admin Acetaminophen 650 MG Q6P PRN 02/12 1600 AC PO Albuterol Sulfate 3 ML EVERY 4 HRS/AWAKE 02/13 0800 AC 02/13 INH 1950 Albuterol Sulfate 2 PUF Q4-6 PRN PRN 02/12 1530 AC INH Azithromycin 500 MG DAILY@1500 02/12 1500 AC 02/13 Sodium Chloride 250 ML IV 1451 Benzonatate 100 MG TID PRN 02/14 0715 AC PO Bisacodyl 5 MG DAILY PRN 02/14 0715 AC PO Budesonide/ 2 PUF BID 02/12 1534 AC 02/13 Formoterol Fumarate INH 2212 Enoxaparin Sodium 40 MG DAILY 02/12 1534 AC 02/13 SC 1105 Furosemide 20 MG ONCE ONE 02/13 1015 DC 02/13 IV 02/13 1016 1243 Guaifenesin 10 ML Q6P PRN 02/13 1000 AC 02/13 PO 1710 Guaifenesin/ 10 ML QPM PRN 02/13 1545 DC 02/13 Dextromethorphan PO 2216 Insulin Aspart 3 UNITS ONCE ONE 02/14 0030 CAN SC 02/14 0031 Insulin Aspart 5 UNITS ONCE ONE 02/13 2000 DC 02/13 SC 02/13 Insulin Aspart 0 TIDAC 02/13 1200 AC 02/13 SC 1706 Insulin Aspart 0 AT BEDTIME 02/12 2200 AC 02/13 SC 2213 Insulin Aspart 0 TIDAC 02/12 1700 DC 02/13 SC 0815 Insulin Detemir 10 UNITS BID 02/13 2200 AC 02/13 SC 2213 Insulin Detemir 8 UNITS BID 02/12 1545 DC 02/12 SC 2118 Ipratropium [place] 2.5 ML EVERY 4 HRS/AWAKE 02/13 0800 AC 02/13 INH 1950 Losartan Potassium 50 MG DAILY 02/13 1000 AC 02/13 PO 1104 Morphine Sulfate 2 MG Q4P PRN 02/12 1800 AC IV Nicotine 21 MG DAILY 02/12 1533 AC 02/13 TOP 1111 Oxycodone/ 1 TAB Q6P PRN 02/12 1600 AC Acetaminophen PO Prednisone 60 MG DAILY 02/13 1000 AC 02/13 PO 02/14 1001 1104 Senna 187 MG AT BEDTIME PRN 02/14 0715 AC PO Senna/Docusate Sodium 1 TAB DAILY NEEDED PRN 02/12 1615 AC PO Assessment/Plan Assessment: This is a 56-year-old female with significant past medical history for questionable asthma who presented to the emergency department on 02/12/2017 complaining of dyspnea and dyspnea on exertion as well as a nonproductive cough lasting last 2 weeks. Patient does not formally have a diagnosis of COPD however given her long time smoking history over 45 years she likely has this diagnosis based on clinical symptoms. COPD exacerbation Vs Bronchiolitis Continue Prednisone 60 mg-->50 mg (to be tapered down) 40 mg from 02/15 (Patient does have an allergy to methylprednisolone.) Azithromycin for anti-inflammatory properties likely 5 day duration. Maintain saturations between 90-93%. Supplement via nasal cannula as necessary. Incentive spirometer. TRC nebulizer treatments as needed. Formal Pulmonology consultation obtained nando. Consider advising patient for Pneumovax and smoking cessation as outpatient. Lower Extremity Edema Echcardiogram done this am and will await results. Cardiology consultation apprecaited. Will continue Losartan. Will clarify need for CCB as patient sates she is not on Amlodipine. Patient seems to have responded well to the initial dose of Lasix given in the emergency department. Lasix 20 mg PO today. Assess in am need for Lasix. Daily Weights. Strict Ins and Outs. 1.105 kg decrease, awaiting weight for today. History of diabetes Maintain blood sugar between 140 and 180. Hemoglobin A1c 6.4 FS,323,212 Levemir 14 Units BID Continue the patient on sliding scale NovoLog.TIDAC/HS, tightened to Medium Dose SS Hold home antihypoglycemics: Pioglitiazone (is associated with Edema), Metformin (recently exposed to Dye) and Glimipride. #Leukocytosis WBC this am:14.6 Likley due to steroid use. Patient has remained afebrile. History of nicotine dependence Nicotine patch 21 mg DVT Prophylaxis Lovenox Diet Diabetic diet. Minimize sodium. Patient is a full code Problem List: 1. Acute exacerbation of COPD with asthma 2. Acute hypoxemic respiratory failure 3. Dyspnea on exertion 4. Seasonal allergic reaction Pain Ratin Pain Location: No Pain Pain Goal: Remain pain free Pain Plan: Tylenol Prn Tomorrow's Labs & Rationales: No Labs DEJAN FRYE MD 02/14/17 1152: Attending MD Review Statement Attending Statement Attending MD Statement: examined this patient, discuss w/resident/PA/OUTPATIENT PROGRAM COORDINATOR, agreed w/resident/PA/OUTPATIENT PROGRAM COORDINATOR, reviewed EMR data (avail) Attending Assessment/Plan: 56F PMH T2DM, lifelong smoker admitted for severe dyspnea on exertion, hypoxia, bilateral lower extremity edema in the setting of acute exacerbation of COPD and acute hypoxemic respiratory failure. Has been treated with Lasix, Solumedrol, and Azithromycin since admission. Today patient feels much better. Whereas on admission she could barely speak in full sentences and became severely dyspneic after a few steps, today she is able to speak comfortably and can ambulate well. She still becomes mildly short of breath when she walks but it is significantly improved. Still requires 1L NC. Wheezing has improved as well. 1. Acute exacerbation of COPD 2. Acute hypoxemic respiratory failure 3. Hypervolemia 4. T2DM with hyperglycemia secondary to corticosteroids Plan - Continue on general medicine - Continue Prednisone, Azithromycin, nebulizer treatments - Follow up echocardiogram - Follow cardiology recommendations - Increase Levemir to 14 units BID - Titrate down oxygen as tolerated - Continue home medications - DVT PPx - Anticipated discharge tomorrow. Please send CMR to pharmacy for review - No labs tomorrow
[2017-02-14 06:19] VITALS: BP 154/88
--- NOTE | 2017-02-14 07:43 | PN- Student ---
Subjective Subjective: Pt was seen and examined at the bedside. She was very pleasant and sitting comfortably in her bed. Today the pt reports feeling better. She still has significant shortness of breath with exersion and noticed that her saturations dropped to 80% on her personal monitor after she got out of the shower. Her non-productive cough is improving but she still has a raspy voice. She also notes that her LE edema is improving and is not painful as it was this weekend. She also experiences occasional palpitations when lying down. Denies lightheadedness, headache, chest pain, nausea, abdominal pain, or leg pain. Objective Objective: Current Medications Sig/John Start time Last Medication Dose Route Stop Time Status Admin Acetaminophen 650 MG Q6P PRN 02/12 1600 AC PO Albuterol Sulfate 3 ML EVERY 4 HRS/AWAKE 02/13 0800 AC 02/13 INH 1950 Albuterol Sulfate 2 PUF Q4-6 PRN PRN 02/12 1530 AC INH Azithromycin 500 MG DAILY@1500 02/12 1500 AC 02/13 Sodium Chloride 250 ML IV 1451 Benzonatate 100 MG TID PRN 02/14 0715 AC PO Bisacodyl 5 MG DAILY PRN 02/14 0715 AC PO Budesonide/ 2 PUF BID 02/12 1534 AC 02/13 Formoterol Fumarate INH 2212 Enoxaparin Sodium 40 MG DAILY 02/12 1534 AC 02/13 SC 1105 Guaifenesin 10 ML Q6P PRN 02/13 1000 AC 02/13 PO 1710 Insulin Aspart 3 UNITS ONCE ONE 02/14 0030 CAN SC 02/14 0031 Insulin Aspart 0 TIDAC 02/13 1200 AC 02/13 SC 1706 Insulin Aspart 0 AT BEDTIME 02/12 2200 AC 02/13 SC 2213 Insulin Detemir 10 UNITS BID 02/13 2200 AC 02/13 SC 2213 Ipratropium [place] 2.5 ML EVERY 4 HRS/AWAKE 02/13 0800 AC 02/13 INH 1950 Losartan Potassium 50 MG DAILY 02/13 1000 AC 02/13 PO 1104 Morphine Sulfate 2 MG Q4P PRN 02/12 1800 AC IV Nicotine 21 MG DAILY 02/12 1533 AC 02/13 TOP 1111 Oxycodone/ 1 TAB Q6P PRN 02/12 1600 AC Acetaminophen PO Prednisone 60 MG DAILY 02/13 1000 AC 02/13 PO 02/14 1001 1104 Senna 187 MG AT BEDTIME PRN 02/14 0715 AC PO Senna/Docusate Sodium 1 TAB DAILY NEEDED PRN 02/12 1615 AC PO Intake & Output 02/14 0000 02/13 1600 02/13 0000 02/12 1600 Intake Total 400 625 Output Total Balance 400 625 Intake, IV 275 Intake, Oral 400 350 Patient 216 lb 218 lb 215 lb Weight Weight Chair scale Reported by Patient Reported by Patient Measurement Method Vital Signs Date Time Temp Pulse Resp B/P B/P Pulse O2 O2 Flow Mean Ox Delivery Rate 02/14 0619 97.4 81 20 154/88 95 02/14 0000 96 Nasal 1.0L Cannula 02/13 2241 98.2 99 20 122/60 94 Nasal 1.0L Cannula 02/13 1550 96 Nasal 1.0L Cannula 02/13 1455 97.8 95 18 130/70 95 02/13 1104 90 132/70 Physical Exam General: well developed/nourished, alert, awake, NAD Head: NCAT Neck: supple, no carotid bruits, no goiter Cardiac: normal s1s2, no mrg, rrr Pulm: cta bl, normal expansion GI: nabs, no ttp, no guarding, no rebound Extremities: LE pitting edema, 1+ DP/PT pulses Results Results: Laboratory Tests 02/14/17 0720: Anion Gap 11, Estimated GFR > 60, BUN/Creatinine Ratio 32.9 H, CBC w Diff NO MAN DIFF REQ, RBC 3.65 L, MCV 89.6, MCH 29.6, RDW 17.5 H, MPV 9.4, Gran % 72.7 , Lymphocytes % 21.2, Monocytes % 5.0, Eosinophils % 0.8, Basophils % 0.3, Absolute Granulocytes 10.6 H, Absolute Lymphocytes 3.1, Absolute Monocytes 0.7 H, Absolute Eosinophils 0.1, Absolute Basophils 0, PUBS MCHC 33.1 02/13/17 0640: Anion Gap 12, Estimated GFR > 60, BUN/Creatinine Ratio 27.1 H, Triglycerides 198 H, Cholesterol 185, LDL Cholesterol, Calc 100, HDL Cholesterol 46, Cholesterol/HDL Ratio 4, CBC w Diff NO MAN DIFF REQ, RBC 3.91 L, MCV 91.2, MCH 29.6, RDW 17.6 H, MPV 10.0, Gran % 82.8 H, Lymphocytes % 13.0 L, Monocytes % 3.9, Eosinophils % 0.1, Basophils % 0.2, Absolute Granulocytes 16.8 H, Absolute Lymphocytes 2.7, Absolute Monocytes 0.8 H, Absolute Eosinophils 0, Absolute Basophils 0, PUBS MCHC 32.5 L 02/12/17 1320: Anion Gap 12, Estimated GFR > 60, BUN/Creatinine Ratio 23.3, Hemoglobin A1c Pending, [id number] Pept 2150 H, CBC w Diff NO MAN DIFF REQ, RBC 3.80 L , MCV 89.4, MCH 29.3, RDW 17.3 H, MPV 9.9, Gran % 91.5 H, Lymphocytes % 6.7 L , Monocytes % 1.6 L, Eosinophils % 0, Basophils % 0.2, Absolute Granulocytes 12.2 H, Absolute Lymphocytes 0.9 L, Absolute Monocytes 0.2, Absolute Eosinophils 0, Absolute Basophils 0, PUBS MCHC 32.8 L Assessment/Plan Assessment: Pt is a 56 yo F current smoker with a history of COPD, HTN, T2DM, GERD, disk herniation, and chronic back pain presenting with 3 days of worsening shortness of breath on exersion associated with non-productive cough, orthopnea, PND, and swelling in the legs. Her overall condition is improving but her saturations have occasionally dropped below 90% so she is being maintained on 1L of oxygen. CXR was negative and leukocytosis is improving. She is likely having a COPD exacerbation expecially given her recent diagnosis of COPD. Plan: #1 shortness of breath Likely COPD exacerbation given her history. -continue TRC/nebs -prednisone -avoid solumedrol (allergy) -monitor saturations -nasal cannula as needed to maintain good saturations #2 swelling in the legs Likely secondary to acute decompensated heart failure. -continue Lasix -maintain negative fluid balance -serial weight checks -obtain echocardiogram -cardiology consult appreciated #3 Hx of COPD -TRC/nebs -monitor saturations -follow up with pulmonologiest as outpt #4 elevated BUN Likely due to prednisone and prerenal azotemia. -avoid metformin and NSAIDs -monitor BUN #5 leukocytosis Trending down. Likely due to prednisone. Pt is afebrile and differential is normalizing. -obtain WBC with diff #6 T2DM -insulin sliding scale #7 back pain -tylenol prn #8 DVP prophylaxis -Lovenox
[2017-02-14 08:09] LABS: ABSOLUTE BASOPHIL COUNT 0 /CUMM (0.0-0.2); ABSOLUTE EOSINOPHIL COUNT 0.1 /CUMM (0.0-0.7); ABSOLUTE GRANULOCYTE CT 10.6 /CUMM (1.4-6.5); ABSOLUTE LYMPH COUNT 3.1 /CUMM (1.2-3.4); ABSOLUTE MONOCYTE COUNT 0.7 /CUMM (0.10-0.60); BASOPHIL % 0.3 % (0.0-2.0); EOSINOPHIL % 0.8 % (0-5); GRANULOCYTE % 72.7 % (42.2-75.2); HEMATOCRIT 32.7 % (37-47); MEAN CORPUSCULAR HGB 29.6 PG (27.0-31.0); MEAN CORPUSCULAR HGB CONC 33.1 G/DL (33.0-37.0); MEAN CORPUSCULAR VOLUME 89.6 FL (81.0-99.0); MEAN PLATELET VOLUME 9.4 FL (7.4-10.4); PLATELET COUNT 224 /CUMM (130-400); RBC DISTRIBUTION WIDTH 17.5 % (11.5-14.5); RED BLOOD CELL CT 3.65 /CUMM (4.20-5.40); WHITE BLOOD CELL COUNT 14.6 /CUMM (4.8-10.8)
--- NOTE | 2017-02-14 10:37 | ECHOCARDIOGRAM REPORT ---
RAFAELA SOLIS Age: 56 : 1960 Gender: F Exam Date: 02/13/2017 08:32 Exam Location: [address] [place] [address] Ht (in): 60 Wt (lb): 217 BSA: 2.10 BP: 97 / Ordering Physician: HECTOR SHEN MD Referring Physician: HECTOR SHEN MD Technologist: Damaris Wong [facility] Room Number: 206 Indications: Rhythm: Sinus Technical Quality: Good FINDINGS Left Ventricle Normal size left ventricle. Normal left ventricular ejection fraction visually estimated at >60%. No obvious regional wall motion abnormalities. "pseudonormal" filling pattern of the left ventricle for age (stage 2 diastolic dysfunction). Right Ventricle Normal right ventricular size and function. Right Atrium Normal right atrial size. Left Atrium Mild left atrial dilatation. Mitral Valve Moderate mitral annular calcification. Mild mitral regurgitation. Aortic Valve Diffuse thickening (sclerosis) of the aortic valve cusps without reduced excursion. No aortic stenosis. No aortic regurgitation. Tricuspid Valve Tricuspid valve not well visualized, grossly normal. Mild tricuspid regurgitation. Right ventricular systolic pressure estimated to be elevated at 66 mmHg. Pulmonic Valve Pulmonic valve not well visualized, grossly normal. Pericardium No pericardial effusion. Great Vessels Normal size aortic root. CONCLUSIONS Normal size left ventricle. Normal left ventricular ejection fraction visually estimated at > 60%. "pseudonormal" filling pattern of the left ventricle for age (stage 2 diastolic dysfunction). Mild left atrial dilatation. Mild mitral regurgitation. Mild tricuspid regurgitation. Right ventricular systolic pressure estimated to be elevated at 66 mmHg. Darrell Hutton M.D. (Electronically Signed) Final Date: 14 February 2017 10:36 MEASUREMENTS (Male / Female) Normal Values 2D ECHO LV Diastolic Diameter PLAX 4.6 cm 4.2 - 5.9 / 3.9 - 5.3 cm LV Systolic Diameter PLAX 2.4 cm 2.1 - 4.0 cm LV Fractional Shortening PLAX 47.8 % 25 - 46 % LV Ejection Fraction 2D Teich 79.3 % IVS Diastolic Thickness 1.1 cm LVPW Diastolic Thickness 1.2 cm LV Relative Wall Thickness 0.5 RV Internal Dim ED PLAX 2.8 cm 1.9 - 3.8 cm LVOT Diameter 1.8 cm Aortic Root Diameter 2.8 cm LA Systolic Diameter LX 4.6 cm 3.0 - 4.0 / 2.7 - 3.8 cm LA Volume 64.0 cm 18 - 58 / 22 - 52 cm Ascending Aorta Diameter 3.0 cm DOPPLER AV Peak Velocity 175.0 cm/s AV Peak Gradient 12.3 mmHg AV Mean Velocity 124.0 cm/s AV Mean Gradient 7.0 mmHg AV Velocity Time Integral 30.6 cm LVOT Peak Velocity 148.0 cm/s LVOT Peak Gradient 8.8 mmHg LVOT Mean Velocity 98.1 cm/s LVOT Mean Gradient 5.0 mmHg LVOT Velocity Time Integral 26.4 cm LVOT Stroke Volume 67.2 cm AV Area Cont Eq vti 2.2 cm AV Area Cont Eq pk 2.2 cm MV Peak Velocity 315.3 cm/s MV Peak Gradient 39.8 mmHg MV Mean Velocity 189.3 cm/s MV Mean Gradient 17.3 mmHg Mitral E Point Velocity 217.0 cm/s Mitral A Point Velocity 164.0 cm/s Mitral E to A Ratio 1.3 MV PHT Velocity 325.3 cm/s MV Deceleration [place] 1476.7 cm/s MV Pressure Half Time 66.1 ms MV Area PHT 3.3 cm MV Deceleration Time 177.0 ms TR Peak Velocity 392.0 cm/s TR Peak Gradient 61.5 mmHg Right Atrial Pressure 5.0 mmHg Pulmonary Artery Systolic Pressu 66.5 mmHg Right Ventricular Systolic Press 66.5 mmHg PV Peak Velocity 120.0 cm/s PV Peak Gradient 5.8 mmHg PV Mean Velocity 81.2 cm/s PV Mean Gradient 3.0 mmHg PV Velocity Time Integral 23.6 cm LV E' Lateral Velocity 5.6 cm/s Mitral E to LV E' Lateral Ratio 39.0 LV E' Septal Velocity 6.2 cm/s Mitral E to LV E' Septal Ratio 34.8
--- NOTE | 2017-02-14 12:00 | Cons- Cardiology ---
General Information and HPI Consulting Request Date of Consult: 02/14/17 Requested By: RUBEN MULLINS MD Reason for Consult: Edema, dyspnea, questionable CHF Source of Information: patient, old records Exam Limitations: no limitations History of Present Illness: The patient is a 56-year-old woman with a past medical history of diabetes mellitus, asthma, chronic smoker. She presented to the emergency room after a visit to a walk-in center for shortness of breath in consideration for a pulmonary embolism due to lower extremity edema 2 days ago and underwent a CAT scan, negative for pulmonary embolism. He returned for a lower extremity Doppler, and was noted to be desaturated upon return with a room air saturation of 86%.. The patient states having worsening, nonproductive cough over a period of approximately 2 weeks. She has as well noted lower extremity edema over a period of approximately one year. She otherwise denied symptoms of chest pains nor palpitations. While in the emergency room, a lower extremity ultrasound was negative for DVT. A chest x-ray was otherwise normal; however, a BNP was elevated at greater than 2000. An echocardiogram was subsequently done which demonstrated preserved LV systolic function, normal valvular function, and mild diastolic dysfunction. Allergies/Medications Allergies: Coded Allergies: ibuprofen (From Advil) (Severe, HIVES 07/17/16) latex (Intermediate, RASH 07/17/16) methylprednisolone (From Solu-Medrol) (Intermediate, GI UPSET 07/17/16) Home Med List: Acetaminophen (Unknown Strength) TABLET (Unknown Dose) PO PRN PRN PAIN ( Reported) Albuterol Sulfate (Ventolin Hfa) 90 MCG HFA.AER.AD 2 PUF INH Q4-6 PRN PRN WHEEZING Cephalexin (Keflex) 500 MG CAPSULE 1 CAP PO 4 TIMES/DAY CELLULITIS Famotidine (Pepcid) 20 MG TABLET 1 TAB PO BID acid reflux Glimepiride 4 MG TABLET 1 TAB PO BID DIABETES (Reported) Ipratropium/Albuterol Sulfate (Iprat-Albut 0.5-3(2.5) MG/3 Ml) 0.5 MG-3 MG (2.5 MG BASE)/3 ML AMPUL.NEB 1 AMP IH 4 TIMES/DAY WHEEZING/SOB (Reported) Losartan Potassium 50 MG TABLET 1 TAB PO DAILY B/P (Reported) Metformin HCl 1,000 MG TABLET 1 TAB PO BID DM (Reported) Naproxen Sodium (Aleve) (Unknown Strength) CAPSULE (Unknown Dose) PO PRN PRN CHRONIC BACK PAIN (Reported) Pioglitazone HCl 45 MG TABLET 1 TAB PO DAILY DM (Reported) Current Medications: Current Medications Sig/John Start time Last Medication Dose Route Stop Time Status Admin Acetaminophen 650 MG Q6P PRN 02/12 1600 AC PO Albuterol Sulfate 3 ML EVERY 4 HRS/AWAKE 02/13 0800 AC 02/14 INH 0837 Albuterol Sulfate 2 PUF Q4-6 PRN PRN 02/12 1530 AC INH Amlodipine Besylate 5 MG .STK-MED ONE 02/14 0032 DC PO 02/14 0033 Azithromycin 500 MG DAILY@1500 02/12 1500 AC 02/13 Sodium Chloride 250 ML IV 1451 Benzonatate 100 MG TID PRN 02/14 0715 AC PO Bisacodyl 5 MG DAILY PRN 02/14 0715 AC PO Budesonide/ 2 PUF BID 02/12 1534 02/14 Formoterol Fumarate INH 1135 Enoxaparin Sodium 40 MG DAILY 02/12 1534 02/14 SC 1134 Furosemide 20 MG ONCE ONE 02/14 1145 DC PO 02/14 1146 Guaifenesin 10 ML Q6P PRN 02/13 1000 AC 02/13 PO 1710 Guaifenesin/ 10 ML QPM PRN 02/13 1545 DC 02/13 Dextromethorphan PO 2216 Insulin Aspart 3 UNITS ONCE ONE 02/14 0030 CAN SC 02/14 0031 Insulin Aspart 5 UNITS ONCE ONE 02/13 2000 DC 02/13 ID 02/13 Insulin Aspart 0 TIDAC 02/13 1200 02/14 SC 0802 Insulin Aspart 0 AT BEDTIME 02/12 2200 02/13 SC 2213 Insulin Detemir 14 UNITS BID 02/14 2200 AC SC Insulin Detemir 14 UNITS ONCE ONE 02/14 1100 DC ID 02/14 1101 Insulin Detemir 10 UNITS BID 02/13 2200 DC 02/13 SC 2213 Ipratropium Manter 2.5 ML EVERY 4 HRS/AWAKE 02/13 0800 AC 02/14 INH 0837 Losartan Potassium 50 MG DAILY 02/13 1000 AC 02/13 PO 1104 Morphine Sulfate 2 MG Q4P PRN 02/12 1800 AC IV Nicotine 21 MG DAILY 02/12 1533 AC 02/14 TOP 1133 Oxycodone/ 1 TAB Q6P PRN 02/12 1600 AC Acetaminophen PO Prednisone 40 MG ONCE ONE 02/15 1130 AC PO 02/15 1131 Prednisone 50 MG ONCE ONE 02/14 1130 DC PO 02/14 1131 Prednisone 60 MG DAILY 02/13 1000 DC 02/14 PO 02/14 1001 1134 Senna 187 MG AT BEDTIME PRN 02/14 0715 AC PO Senna/Docusate Sodium 1 TAB DAILY NEEDED PRN 02/12 1615 AC PO Review of Systems Review of Systems: The review of systems is negative for chest pains, palpitations nor lightheadedness. The remainder of the 14 point review of systems is noncontributory with the exception of above. 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 . BROTHER, ; Cause: Myocardial infarction. Psychosocial History Where Do You Live? Home Who Do You Live With? child Services at Home: None Primary Language: Nepali Smoking Status: Current Everyday Smoker (45 year smoking history) ETOH Use: occasional use Illicit Drug Use: denies illicit drug use Functional Ability ADLs Independent: dressing, eating, toileting, bathing. Ambulation: independent IADLs Independent: shopping, housework, finances, food prep, telephone, transportation , medication admin. Exam & Diagnostic Data Vital Signs and I&O Vital Signs Date Time Temp Pulse Resp B/P B/P Pulse O2 O2 Flow FiO2 Mean Ox Delivery Rate 02/14 0939 96 Nasal 1.0L Cannula 02/14 0800 94 Nasal 1.0L Cannula 02/14 0619 97.4 81 20 154/88 95 02/14 0000 96 Nasal 1.0L Cannula 02/13 2241 98.2 99 20 122/60 94 Nasal 1.0L Cannula 02/13 1550 96 Nasal 1.0L Cannula 02/13 1455 97.8 95 18 130/70 95 Intake & Output 02/14 1600 02/14 0800 02/14 0000 02/13 1600 02/13 0800 02/13 0000 Intake Total 400 625 Output Total Balance 400 625 Intake, IV 275 Intake, Oral 400 350 Patient 216 lb 218 lb Weight Weight Chair scale Reported by Patient Measurement Method Physical Exam: General: Nontoxic, no apparent distress. HEENT: Sclera and conjunctiva within normal limits, without xanthelasmas. Neck: Carotids 2+ without bruits. Respiratory: Scattered rhonchi, air movement is good, without accessory respiratory muscle use. Heart: Regular rate and rhythm, without murmurs, without JVD. Abdomen: Soft, nontender, no masses, normoactive bowel sounds. Extremities: Without clubbing, cyanosis, approximately 1 mm pitting edema in both lower extremities to the knees. Neuro: Nonfocal exam, strength, 5 out of 5 Skin: Within normal limits without lesions. Psych: Mood and affect: Normal Labs/Ramirez Results: Laboratory Tests 02/14 02/13 0720 0640 Chemistry Sodium (137 - 145 mmol/L) 140 137 Potassium (3.5 - 5.1 mmol/L) 4.2 3.7 Chloride (98 - 107 mmol/L) 103 100 Carbon Dioxide (22 - 30 mmol/L) 26 25 Anion Gap (5 - 16) 11 12 BUN (7 - 17 mg/dL) 23 H 19 H Creatinine (0.5 - 1.0 mg/dL) 0.7 0.7 Estimated GFR (>60 ml/min) > 60 > 60 BUN/Creatinine Ratio (7 - 25 %) 32.9 H 27.1 H Triglycerides (<150 mg/dL) 198 H Cholesterol (<200 MG/DL) 185 LDL Cholesterol, Calc (65 - 129 mg/dL) 100 HDL Cholesterol (40 - 60 mg/dL) 46 Cholesterol/HDL Ratio (0.00 - 4.23 %) 4 Hematology CBC w Diff NO MAN DIFF REQ NO MAN DIFF REQ WBC (4.8 - 10.8 /CUMM) 14.6 H 20.3 H RBC (4.20 - 5.40 /CUMM) 3.65 L 3.91 L Hgb (12.0 - 16.0 G/DL) 10.8 L 11.6 L Hct (37 - 47 %) 32.7 L 35.7 L MCV (81.0 - 99.0 FL) 89.6 91.2 MCH (27.0 - 31.0 PG) 29.6 29.6 RDW (11.5 - 14.5 %) 17.5 H 17.6 H Plt Count (130 - 400 /CUMM) 224 278 MPV (7.4 - 10.4 FL) 9.4 10.0 Gran % (42.2 - 75.2 %) 72.7 82.8 H Lymphocytes % (20.5 - 51.1 %) 21.2 13.0 L Monocytes % (1.7 - 9.3 %) 5.0 3.9 Eosinophils % (0 - 5 %) 0.8 0.1 Basophils % (0.0 - 2.0 %) 0.3 0.2 Absolute Granulocytes (1.4 - 6.5 /CUMM) 10.6 H 16.8 H Absolute Lymphocytes (1.2 - 3.4 /CUMM) 3.1 2.7 Absolute Monocytes (0.10 - 0.60 /CUMM) 0.7 H 0.8 H Absolute Eosinophils (0.0 - 0.7 /CUMM) 0.1 0 Absolute Basophils (0.0 - 0.2 /CUMM) 0 0 PUBS MCHC (33.0 - 37.0 G/DL) 33.1 32.5 L 06/17 1320 Chemistry Sodium (137 - 145 mmol/L) 135 L Potassium (3.5 - 5.1 mmol/L) 4.6 Chloride (98 - 107 mmol/L) 104 Carbon Dioxide (22 - 30 mmol/L) 20 L Anion Gap (5 - 16) 12 BUN (7 - 17 mg/dL) 14 Creatinine (0.5 - 1.0 mg/dL) 0.6 Estimated GFR (>60 ml/min) > 60 BUN/Creatinine Ratio (7 - 25 %) 23.3 Hemoglobin A1c (4.2 - 5.8 %) 6.4 H Llw-E-Vazfnbcwcsy Pept (<125 pg/mL) 2150 H Hematology CBC w Diff NO MAN DIFF REQ WBC (4.8 - 10.8 /CUMM) 13.3 H RBC (4.20 - 5.40 /CUMM) 3.80 L Hgb (12.0 - 16.0 G/DL) 11.1 L Hct (37 - 47 %) 34.0 L MCV (81.0 - 99.0 FL) 89.4 MCH (27.0 - 31.0 PG) 29.3 RDW (11.5 - 14.5 %) 17.3 H Plt Count (130 - 400 /CUMM) 238 MPV (7.4 - 10.4 FL) 9.9 Gran % (42.2 - 75.2 %) 91.5 H Lymphocytes % (20.5 - 51.1 %) 6.7 L Monocytes % (1.7 - 9.3 %) 1.6 L Eosinophils % (0 - 5 %) 0 Basophils % (0.0 - 2.0 %) 0.2 Absolute Granulocytes (1.4 - 6.5 /CUMM) 12.2 H Absolute Lymphocytes (1.2 - 3.4 /CUMM) 0.9 L Absolute Monocytes (0.10 - 0.60 /CUMM) 0.2 Absolute Eosinophils (0.0 - 0.7 /CUMM) 0 Absolute Basophils (0.0 - 0.2 /CUMM) 0 PUBS MCHC (33.0 - 37.0 G/DL) 32.8 L Assessment/Plan Assessment/Plan The patient is a 56-year-old woman with a past medical history of diabetes mellitus, asthma, chronic smoker. She presented to the emergency room after a visit to a walk-in center for shortness of breath in consideration for a pulmonary embolism due to lower extremity edema 2 days ago and underwent a CAT scan, negative for pulmonary embolism. He returned for a lower extremity Doppler, and was noted to be desaturated upon return with a room air saturation of 86%. On initial blood work, a BNP was elevated. Dyspnea, cough: Likely multifactorial. The patient has underlying COPD, and states having a diagnosis of asthma as well. Her echocardiogram would suggest a mild component of diastolic dysfunction contributing to dyspnea, and she has demonstrated improvement following treatment of both her underlying primary respiratory issues as well as diuresis. Diastolic dysfunction: Likely contributing to her dyspnea as above; however, currently the patient's renal function is demonstrating evidence for a prerenal state and I would therefore attempt to maintain a euvolemic state. Her lower extremity edema may be contributed to by her amlodipine in the presence of diastolic dysfunction, I would consider changing her regimen to an agent such as Cardizem or verapamil which would likely assist in both control of her blood pressure as well as improve cardiac lusitropy. Hypertension: As above, I would change her regimen from amlodipine to an agent such as Cardizem or verapamil. Losartan can be maintained for renal protection in the setting of diabetes as well as for added blood pressure reduction. Further titration will be made as an outpatient. Thank you for allowing us to participate in the care of your patient. Please do not hesitate to contact us further with any questions. Sincerely, Valentín Kelsey MD [facility] Consult Acknowledgment - Thank you for your consult request.
[2017-02-14 14:33] VITALS: BP 160/80
--- NOTE | 2017-02-14 16:20 | Patient Discharge Instructions ---
Discharge Instructions General Discharge Information You were seen/treated for: COPD/ Acute Bronchitis You had these procedures: NA Watch for these problems: If you feel weak, experience chest pain, shortness breath, worsening cough or increased weakness please come back to the emergency department. Other signs to watch out for include: fever, chills, nausea and vomiting. Special Instructions: Please follow-up with your primary care physician within 7 days of discharge. Please inform your primary care physician of this admission to the hospital. Please follow up with the program research specialist, we have provided you with a referral. Please follow up with the change management director we have provided you with a referral. You will be required to undergo various tests as an outpatient, including a sleep study. We have also given you a new referral for a new primary care physician. Diet Continue normal diet: No Recommended Diet: Heart Healthy, Limit Sodium Activity Full Activity/No Limits: No Activity Self Limited: Yes Acute Coronary Syndrome Inclusion Criteria At DC or during hospital stay patient has or had the following: ACS DIAGNOSIS No Discharge Core Measures Meds if any: Prescribed or Continued at Discharge Meds if any: NOT Prescribed or Continued at Discharge Congestive Heart Failure Inclusion Criteria At DC or during hospital stay patient has or had the following: CHF DIAGNOSIS No Discharge Core Measures Meds if any: Prescribed or Continued at Discharge Meds if any: NOT Prescribed or Continued at Discharge Cerebrovascular accident Inclusion Criteria At DC or during hospital stay patient has or had the following: CVA/TIA Diagnosis No Discharge Core Measures Meds if any: Prescribed or Continued at Discharge Meds if any: NOT Prescribed or Continued at Discharge Venous thromboembolism Inclusion Criteria VTE Diagnosis No VTE Type NONE VTE Confirmed by (Test) NONE Discharge Core Measures - Per Current guidelines, there needs to be overlap - treatment for the first 5 days of Warfarin therapy. - If discharged on Warfarin prior to 5 days of - overlap therapy, the patient will need to be - assessed for post discharge needs including - *Post discharge parental anticoagulation - *Warfarin and/or parental anticoagulation education - *Follow up date to check INR post discharge At least 5 days overlap therapy as Inpatient Yes Meds if any: Prescribed or Continued at Discharge Note: Overlap Therapy is Warfarin and Anticoagulant Meds if any: NOT Prescribed or Continued at Discharge
[2017-02-14] MEDS ORDERED: PREDNISONE20 M1 PO (16:26)
--- NOTE | 2017-02-14 19:19 | Cons- Pulmonary ---
General Information and HPI Consulting Request Date of Consult: 02/14/17 Requested By: med team History of Present Illness: The patient is a 56-year-old woman with a past medical history of diabetes mellitus, asthma, chronic smoker. She presented to the emergency room after a visit to a walk-in center for shortness of breath in consideration for a pulmonary embolism due to lower extremity edema 2 days ago and underwent a CAT scan, negative for pulmonary embolism. He returned for a lower extremity Doppler, and was noted to be desaturated upon return with a room air saturation of 86%.. The patient states having worsening, nonproductive cough over a period of approximately 2 weeks. She has as well noted lower extremity edema over a period of approximately one year. She otherwise denied symptoms of chest pains nor palpitations. While in the emergency room, a lower extremity ultrasound was negative for DVT. A chest x-ray was otherwise normal; however, a BNP was elevated at greater than 2000. An echocardiogram was subsequently done which demonstrated preserved LV systolic function, normal valvular function, and mild diastolic dysfunction. Unfortunately she continues to smoke more than a pack a day. She has no pets, no birds at home. But she lives next to her forearm. She has diabetes. She has been on high-dose Actos. She does use Ventolin as needed. No previous significant exacerbation of COPD. Review of Systems Constitutional: Reports: see HPI. EENTM: Denies: blurred vision, visual changes, eye pain. Cardiovascular: Reports: edema, orthopena, palpitations, peripheral edema. Denies: see HPI, syncope. Respiratory: Reports: cough, orthopnea, short of breath, wheezing. Denies: hemoptysis, sputum production, stridor. GI: Denies: abdominal pain, bloating, constipation, diarrhea, distention, bowel incontinence, melena. Genitourinary: Denies: discharge, dysuria, frequency, hematuria, hesitation. Musculoskeletal: Denies: back pain, gout, joint pain, joint swelling, muscle pain, muscle stiffness. Skin: Denies: change in skin color, change in hair/nails, dryness, erythema, jaundice, lesions. Neurological/Psychological: Denies: anxiety, ataxia, cognitive dysfunction, confusion, depressed, dementia, emotional problems. Hematologic/Endocrine: Denies: bruising, bleeding, polyuria, polydipsia. Immunologic/Allergic: Denies: splenectomy, HIV/AIDS, lymphadenopathy, other. Allergies/Medications Allergies: Coded Allergies: ibuprofen (From Advil) (Severe, HIVES 07/17/16) latex (Intermediate, RASH 07/17/16) methylprednisolone (From Solu-Medrol) (Intermediate, GI UPSET 07/17/16) Home Med List: Acetaminophen (Unknown Strength) TABLET (Unknown Dose) PO PRN PRN PAIN ( Reported) Albuterol Sulfate (Ventolin Hfa) 90 MCG HFA.AER.AD 2 PUF INH Q4-6 PRN PRN WHEEZING Cephalexin (Keflex) 500 MG CAPSULE 1 CAP PO 4 TIMES/DAY CELLULITIS Famotidine (Pepcid) 20 MG TABLET 1 TAB PO BID acid reflux Glimepiride 4 MG TABLET 1 TAB PO BID DIABETES (Reported) Ipratropium/Albuterol Sulfate (Iprat-Albut 0.5-3(2.5) MG/3 Ml) 0.5 MG-3 MG (2.5 MG BASE)/3 ML AMPUL.NEB 1 AMP IH 4 TIMES/DAY WHEEZING/SOB (Reported) Losartan Potassium 50 MG TABLET 1 TAB PO DAILY B/P (Reported) Metformin HCl 1,000 MG TABLET 1 TAB PO BID DM (Reported) Naproxen Sodium (Aleve) (Unknown Strength) CAPSULE (Unknown Dose) PO PRN PRN CHRONIC BACK PAIN (Reported) Pioglitazone HCl 45 MG TABLET 1 TAB PO DAILY DM (Reported) Prednisone 20 MG TABLET 2 TAB PO DAILY Shortness of Breath Take two tablets per day, then stop. Review of Systems Review of Systems Constitutional: Reports: see HPI. 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 . BROTHER, ; Cause: Myocardial infarction. Psychosocial History Where Do You Live? Home Who Do You Live With? child Services at Home: None Primary Language: Mongolian Smoking Status: Current Everyday Smoker (45 year smoking history) ETOH Use: occasional use Illicit Drug Use: denies illicit drug use Functional Ability ADLs Independent: dressing, eating, toileting, bathing. Ambulation: independent IADLs Independent: shopping, housework, finances, food prep, telephone, transportation , medication admin. Exam & Diagnostic Data Last 24 Hrs of Vital Signs/I&O Vital Signs Date Time Temp Pulse Resp B/P B/P Pulse O2 O2 Flow FiO2 Mean Ox Delivery Rate 02/14 1622 97 Nasal 1.0L Cannula 02/14 1433 97.7 100 18 160/80 92 Nasal 1.0L Cannula 02/14 1144 88 140/72 02/14 0939 96 Nasal 1.0L Cannula 02/14 0800 94 Nasal 1.0L Cannula 02/14 06 97.4 81 20 154/88 95 02/14 0000 96 Nasal 1.0L Cannula 02/13 2241 98.2 99 20 122/60 94 Nasal 1.0L Cannula Intake & Output 02/14 1600 02/14 0800 02/14 0000 Intake Total 400 Output Total Balance 400 Intake, Oral 400 Last 48 Hrs of Labs/Ramirez: Laboratory Tests 02/14/17 0720: Anion Gap 11, Estimated GFR > 60, BUN/Creatinine Ratio 32.9 H, CBC w Diff NO MAN DIFF REQ, RBC 3.65 L, MCV 89.6, MCH 29.6, RDW 17.5 H, MPV 9.4, Gran % 72.7 , Lymphocytes % 21.2, Monocytes % 5.0, Eosinophils % 0.8, Basophils % 0.3, Absolute Granulocytes 10.6 H, Absolute Lymphocytes 3.1, Absolute Monocytes 0.7 H, Absolute Eosinophils 0.1, Absolute Basophils 0, PUBS MCHC 33.1 02/13/17 0640: Anion Gap 12, Estimated GFR > 60, BUN/Creatinine Ratio 27.1 H, Triglycerides 198 H, Cholesterol 185, LDL Cholesterol, Calc 100, HDL Cholesterol 46, Cholesterol/HDL Ratio 4, CBC w Diff NO MAN DIFF REQ, RBC 3.91 L, MCV 91.2, MCH 29.6, RDW 17.6 H, MPV 10.0, Gran % 82.8 H, Lymphocytes % 13.0 L, Monocytes % 3.9, Eosinophils % 0.1, Basophils % 0.2, Absolute Granulocytes 16.8 H, Absolute Lymphocytes 2.7, Absolute Monocytes 0.8 H, Absolute Eosinophils 0, Absolute Basophils 0, PUBS MCHC 32.5 L Assessment/Plan Impression/Plan: Physical Exam General Appearance Alert, Oriented X3, Cooperative Skin No Rashes Skin Temp/Moisture Exam: Warm/Dry HEENT Dry Mucous membrares Neck Supple, No JVD, No thryomegaly Lymphatic Cervical nl Cardiovascular Regular Rate, Normal S1, Normal S2, Tachcardic Lungs Clear to Auscultation, Increased BS. Bibasillar Crackles. Abdomen Normal Bowel Sounds, Soft, No Tenderness Neurological Normal Speech, Strength at 5/5 X4 Ext Extremities No Clubbing, No Cyanosis, Normal Pulses, Edema 2+ SIGNIFICANT DATA Echocardiogram reviewed. Show significant pulmonary hypertension. CT scan of the chest reviewed which showed that she does have small airway disease with air trapping, no pulmonary embolism, mildly enlarged mediastinal lymph nodes which appears to be nonspecific and reactive. Echocardiogram did show that she has ejection fraction which is more than 60% but right sided pressures were more than 65. Blood work did not reveal any eosinophilia white count is elevated with a left shift. Hemoglobin low. BUN/creatinine relatively stable BNP was elevated A1c was 6.4. IMPRESSION This is a morbidly obese lady with history of diabetes, more than 45 pack year smoking history, probable obstructive sleep apnea, now comes in with Cough wheezing shortness of breath suggestive of bronchiolitis. She probably does have significant COPD but her chest x-ray does not suggest any hyperinflation and she does not have any emphysema and a CAT scan. She is not terribly symptomatic. She may have mild bronchitis. She has significant pulmonary hypertension with lower extremity edema. His may be related to multiple factors including probable obstructive sleep apnea versus significant lung disease. No evidence suggestive of venous thrombus embolism and she may have a component of diastolic dysfunction. Pedal edema may be related to cor pulmonale versus Actos causing fluid overload as well. She has significant diabetes with well-controlled A1c Ongoing smoking Mediastinal lymphadenopathy which needs follow-up CT in the next 6 months RECOMMENDATION Switch her to by mouth prednisone 40 mg for 5 days [id number] nebulizer therapy with DuoNeb Start Spiriva 1 puff daily Symbicort 2 puffs twice a day As needed Pro Air Wean off oxygen Continue diuresis Watch BUN/creatinine Hold by mouth glitazone and this may need to be reduced to 15 mg Agree with changing her amlodipine to other calcium channel blockers which might help her pulmonary hypertension Outpatient sleep study Smoking cessation counseling done patient understands the risks and benefits of this. Consult Acknowledgment - Thank you for your consult request.
[2017-02-14 23:04] VITALS: BP 133/65
--- NOTE | 2017-02-15 06:13 | PN- Housestaff ---
Subjective Follow-up For: Brionchilitis vs COPD Subjective: Ms Decker was seen and examined this morning. She is resting comfortably in bed. Denies any acute issues overnight. States that she was able to sleep well, till approximately four am, when she woke up with diffuse muscles spasms in her legs. Since then she is began to feel restless and did have an episode where she felt nauseous. She had one episode of non-bilious nonbloody vomiting. She attributes this to the PPI. She also had an episode of anxiety and requested a breathing treatment. She states that she currently feels better. She denies any fever, chills, or vomiting. Denies any presence of cough. States edema has improved. Tolerating by mouth intake well. Review of Systems Constitutional: Reports: see HPI. Objective Last 24 Hrs of Vital Signs/I&O Vital Signs Date Time Temp Pulse Resp B/P B/P Pulse O2 O2 Flow FiO2 Mean Ox Delivery Rate 02/15 0638 Nasal 1.0L Cannula 02/15 0000 Nasal 1.0L Cannula 02/14 2304 98.1 98 20 133/65 96 Nasal 1.0L Cannula 02/14 1622 97 Nasal 1.0L Cannula 02/14 1433 97.7 100 18 160/80 92 Nasal 1.0L Cannula 02/14 1144 88 140/72 02/14 0939 96 Nasal 1.0L Cannula 02/14 0800 94 Nasal 1.0L Cannula Intake & Output 02/15 0800 02/15 0000 02/14 1600 Intake Total 480 480 720 Output Total 400 Balance 480 480 320 Intake, Oral 480 480 720 Output, Urine 400 Physical Exam General Appearance: Alert, Oriented X3, Cooperative Cardiovascular: Regular Rate, Normal S1, Normal S2 Lungs: Clear to Auscultation Abdomen: Normal Bowel Sounds, Soft, No Tenderness Neurological: Normal Gait, Normal Speech Extremities: Edema, 3+ L>R Vascular: Normal Pulses Current Medications: Current Medications Sig/John Start time Last Medication Dose Route Stop Time Status Admin Acetaminophen 650 MG Q6P PRN 02/12 1600 AC PO Albuterol Sulfate 3 ML EVERY 4 HRS/AWAKE 02/13 0800 AC 02/15 INH 0637 Albuterol Sulfate 2 PUF Q4-6 PRN PRN 02/12 1530 AC INH Azithromycin 250 MG DAILY 02/15 1000 UNVr PO Azithromycin 500 MG DAILY@1500 02/12 1500 DC 02/14 Sodium Chloride 250 ML IV 1618 Benzonatate 100 MG TID PRN 02/14 0715 AC 02/15 PO 0530 Bisacodyl 5 MG DAILY PRN 02/14 0715 AC PO Budesonide/ 2 PUF BID 02/12 1534 AC 02/14 Formoterol Fumarate INH 2214 Enoxaparin Sodium 40 MG DAILY 02/12 1534 AC 02/14 SC 1134 Furosemide 20 MG ONCE ONE 02/14 1145 DC 02/14 PO 02/14 1146 1313 Guaifenesin 10 ML Q6P PRN 02/13 1000 AC 02/13 PO 1710 Insulin Aspart 0 TIDAC 02/13 1200 AC 02/14 SC 1825 Insulin Aspart 0 AT BEDTIME 02/12 2200 AC 02/14 SC 2215 Insulin Detemir 14 UNITS BID 02/14 2200 AC 02/14 SC 2214 Insulin Detemir 14 UNITS ONCE ONE 02/14 1100 DC 02/14 SC 02/14 1101 1143 Insulin Detemir 10 UNITS BID 02/13 2200 DC 02/13 SC 2213 Ipratropium [place] 2.5 ML EVERY 4 HRS/AWAKE 02/13 0800 AC 02/15 INH 0637 Losartan Potassium 50 MG DAILY 02/13 1000 AC 02/14 PO 1144 Morphine Sulfate 2 MG Q4P PRN 02/12 1800 AC IV Nicotine 14 MG DAILY 02/15 1000 UNVr TOP Nicotine 21 MG DAILY 02/12 1533 DC 02/14 TOP 1133 Omeprazole 40 MG DAILY AC 02/14 1423 AC 02/15 PO 0530 Ondansetron HCl 4 MG ONCE ONE 02/15 0630 DC 02/15 IV 02/15 0631 0631 Oxycodone/ 1 TAB Q6P PRN 02/12 1600 AC Acetaminophen PO Prednisone 40 MG ONCE ONE 02/15 1130 CAN PO 02/15 1131 Prednisone 40 MG DAILY 02/15 1000 AC PO Prednisone 50 MG ONCE ONE 02/14 1130 DC 02/14 PO 02/14 1131 1138 Prednisone 60 MG DAILY 02/13 1000 DC 02/13 PO 02/14 1001 1104 Senna 187 MG AT BEDTIME PRN 02/14 0715 AC PO Senna/Docusate Sodium 1 TAB DAILY NEEDED PRN 02/12 1615 AC PO Tiotropium [place] 1 PUF DAILY 02/14 1925 AC 02/14 INH 2214 Assessment/Plan Assessment: This is a 56-year-old female with significant past medical history for questionable asthma who presented to the emergency department on 02/12/2017 complaining of dyspnea and dyspnea on exertion as well as a nonproductive cough lasting last 2 weeks. Patient does not formally have a diagnosis of COPD however given her long time smoking history over 45 years she likely has this diagnosis based on clinical symptoms. COPD exacerbation Vs Bronchiolitis 40 mg from 02/15 (Patient does have an allergy to methylprednisolone.) Azithromycin for anti-inflammatory properties total 5 day duration. Spiriva to be prescribed. Patient to follow up as an outpatient, will require a sleep study. Maintain saturations between 90-93%. Supplement via nasal cannula as necessary. Incentive spirometer. TRC nebulizer treatments as needed. Consider advising patient for Pneumovax and smoking cessation as outpatient. Lower Extremity Edema Echcardiogram done this am and will await results. Cardiology consultation apprecaited. Will continue Losartan. Patient will be started on Dilatiazem 120 mg daily for Lusitropy and to assist with pulmonary hypertension. Will follow up with wind site manager as an outpaitient. Patient seems to have responded well to the initial dose of Lasix given in the emergency department. Daily Weights. Strict Ins and Outs. History of diabetes Maintain blood sugar between 140 and 180. Hemoglobin A1c 6.4 FS Levemir 14 Units BID Continue the patient on sliding scale NovoLog.TIDAC/HS, tightened to Medium Dose SS Hold home antihypoglycemics: Pioglitiazone (is associated with Edema), Metformin (recently exposed to Dye) and Glimipride. #Leukocytosis Mariahley due to steroid use. Patient has remained afebrile. History of nicotine dependence Nicotine patch 14 mg DVT Prophylaxis Lovenox Diet Diabetic diet. Minimize sodium. Patient is a full code Problem List: 1. Acute exacerbation of COPD with asthma 2. Acute hypoxemic respiratory failure 3. Dyspnea on exertion 4. Seasonal allergic reaction 5. Bronchitis Pain Ratin Pain Location: NA Pain Goal: Remain pain free Pain Plan: Tylenol PRN Tomorrow's Labs & Rationales: No Labs
[2017-02-15 06:30] VITALS: BP 141/85
[2017-02-15] MEDS ORDERED: AZITHROMYCIN250 M1 PO ×2 (07:20→11:13)
--- NOTE | 2017-02-15 07:20 | PN- Student ---
RASHAWN FRYE 02/15/17 0720: Subjective Subjective: Pt was seen and examined at the bedside. She reports that her breathing and coughing has improved significantly. She is still short of breath with exersion and notices that her voice is raspy. She still reports having fluid in her legs but this is improving as well. She reports having an episode of bilateral leg cramping this morning which went away after a few minutes. She thinks this could be simply due to immobility. She also reported nausea after taking her dose of Prilosec this morning and was subsequently given zofran. She reports occasional PND at home but denies snoring or morning headaches. Denies lightheadedness, headache, palpitations, chest pressure, pleuritic pain, vomitting, abdominal pain, or dysuria. Objective Objective: Intake & Output 02/15 0800 02/15 0000 02/14 1600 02/14 0000 02/13 1600 Intake Total 480 480 720 400 625 Output Total 400 Balance 480 480 320 400 625 Intake, IV 275 Intake, Oral 480 480 720 400 350 Output, Urine 400 Patient 216 lb Weight Weight Chair scale Measurement Method Current Medications Sig/John Start time Last Medication Dose Route Stop Time Status Admin Acetaminophen 650 MG Q6P PRN 02/12 1600 AC PO Albuterol Sulfate 3 ML EVERY 4 HRS/AWAKE 02/13 0800 AC 02/15 INH 0637 Albuterol Sulfate 2 PUF Q4-6 PRN PRN 02/12 1530 AC INH Azithromycin 250 MG DAILY 02/15 1000 UNVr PO Benzonatate 100 MG TID PRN 02/14 0715 AC 02/15 PO 0530 Bisacodyl 5 MG DAILY PRN 02/14 0715 AC PO Budesonide/ 2 PUF BID 02/12 1534 AC 02/14 Formoterol Fumarate INH 2214 Enoxaparin Sodium 40 MG DAILY 02/12 1534 AC 02/14 SC 1134 Guaifenesin 10 ML Q6P PRN 02/13 1000 AC 02/13 PO 1710 Insulin Aspart 0 TIDAC 02/13 1200 AC 02/14 SC 1825 Insulin Aspart 0 AT BEDTIME 02/12 2200 AC 02/14 SC 2215 Insulin Detemir 14 UNITS BID 02/14 2200 AC 02/14 SC 2214 Ipratropium [place] 2.5 ML EVERY 4 HRS/AWAKE 02/13 0800 AC 02/15 INH 0637 Losartan Potassium 50 MG DAILY 02/13 1000 AC 02/14 PO 1144 Morphine Sulfate 2 MG Q4P PRN 02/12 1800 AC IV Nicotine 14 MG DAILY 02/15 1000 UNVr TOP Omeprazole 40 MG DAILY AC 02/14 1423 AC 02/15 PO 0530 Oxycodone/ 1 TAB Q6P PRN 02/12 1600 AC Acetaminophen PO Prednisone 40 MG ONCE ONE 02/15 1130 CAN PO 02/15 1131 Prednisone 40 MG DAILY 02/15 1000 AC PO Senna 187 MG AT BEDTIME PRN 02/14 0715 AC PO Senna/Docusate Sodium 1 TAB DAILY NEEDED PRN 02/12 1615 AC PO Tiotropium [place] 1 PUF DAILY 02/14 1925 AC 02/14 INH 2214 Vital Signs Date Time Temp Pulse Resp B/P B/P Pulse O2 O2 Flow FiO2 Mean Ox Delivery Rate 02/15 0638 Nasal 1.0L Cannula 02/15 0000 Nasal 1.0L Cannula 02/14 2304 98.1 98 20 133/65 96 Nasal 1.0L Cannula 02/14 1622 97 Nasal 1.0L Cannula 02/14 1433 97.7 100 18 160/80 92 Nasal 1.0L Cannula 02/14 1144 88 140/72 02/14 0939 96 Nasal 1.0L Cannula 02/14 0800 94 Nasal 1.0L Cannula Physical Exam General: well developed/nourished, alert, awake, NAD Head: NCAT Neck: supple, no carotid bruits, no goiter Cardiac: normal s1s2, no mrg, rrr Pulm: cta bl, normal expansion GI: nabs, no ttp, no guarding, no rebound Extremities: LE pitting edema, 1+ DP/PT pulses Results Results: Laboratory Tests 02/14/17 0720: Anion Gap 11, Estimated GFR > 60, BUN/Creatinine Ratio 32.9 H, CBC w Diff NO MAN DIFF REQ, RBC 3.65 L, MCV 89.6, MCH 29.6, RDW 17.5 H, MPV 9.4, Gran % 72.7 , Lymphocytes % 21.2, Monocytes % 5.0, Eosinophils % 0.8, Basophils % 0.3, Absolute Granulocytes 10.6 H, Absolute Lymphocytes 3.1, Absolute Monocytes 0.7 H, Absolute Eosinophils 0.1, Absolute Basophils 0, PUBS MCHC 33.1 02/13/17 0640: Anion Gap 12, Estimated GFR > 60, BUN/Creatinine Ratio 27.1 H, Triglycerides 198 H, Cholesterol 185, LDL Cholesterol, Calc 100, HDL Cholesterol 46, Cholesterol/HDL Ratio 4, CBC w Diff NO MAN DIFF REQ, RBC 3.91 L, MCV 91.2, MCH 29.6, RDW 17.6 H, MPV 10.0, Gran % 82.8 H, Lymphocytes % 13.0 L, Monocytes % 3.9, Eosinophils % 0.1, Basophils % 0.2, Absolute Granulocytes 16.8 H, Absolute Lymphocytes 2.7, Absolute Monocytes 0.8 H, Absolute Eosinophils 0, Absolute Basophils 0, PUBS MCHC 32.5 L 02/12/17 1320: Anion Gap 12, Estimated GFR > 60, BUN/Creatinine Ratio 23.3, Hemoglobin A1c 6.4 H, Qkh-I-Kacisinvamr Pept 2150 H, CBC w Diff NO MAN DIFF REQ, RBC 3.80 L, MCV 89.4, MCH 29.3, RDW 17.3 H, MPV 9.9, Gran % 91.5 H, Lymphocytes % 6.7 L, Monocytes % 1.6 L, Eosinophils % 0, Basophils % 0.2, Absolute Granulocytes 12.2 H, Absolute Lymphocytes 0.9 L, Absolute Monocytes 0.2, Absolute Eosinophils 0, Absolute Basophils 0, PUBS MCHC 32.8 L Assessment/Plan Assessment: Pt is a 56 yo F current smoker with a history of COPD, HTN, T2DM, GERD, disk herniation, and chronic back pain presenting with worsening shortness of breath on exersion associated with non-productive cough, orthopnea, PND, and swelling in the legs. She has been saturating well on 1L and may be ready to be off oxygen. There were no remarkable findings on echocardiogram. She was seen by cardiology yesterday and beleived to have some degree of diastolic heart failure contributing to her symptoms. She was also seen by Dr. Green who suggested that her symptoms could be explained by bronchiolitis. Plan: #1 shortness of breath Possibly COPD exacerbation or bronchiolitis -continue TRC/nebs -continue azithromycin -oral prednisone -start spiriva, continue symbicort, pro air prn per pulmonology -avoid solumedrol (allergy) -monitor saturations -wean off oxygen -recommend Pneumovax -relationship counselor on smoking cessation #2 swelling in the legs Likely secondary to a combination of pulmonary hypertension and possible sleep apnea -oral Lasix -maintain negative fluid balance -serial weight checks -sleep study as outpt #3 Hypertension Last BP was 141/85 -start cardizem or verapimil for BP control #4 elevated BUN Likely due to prednisone and prerenal azotemia. -avoid metformin and NSAIDs -monitor BUN #5 T2DM Hgb A1c is 6.4 -insulin sliding scale #6 back pain -tylenol prn #7 DVP prophylaxis -Lovenox
[2017-02-15] MEDS ORDERED: SPIRIVA18 MCG INH ×2 (07:25→11:13)
[2017-02-15 08:45] VITALS: BP 142/78
--- NOTE | 2017-02-15 11:11 | PN- Cardiology ---
Subjective Subjective: Patient states that she feels much better this morning. Her breathing has improved. She denies chest discomfort. Review of Systems: Eyes no blurred or double vision Ears no deafness or ringing Nose and throat no recurrent sinusitis Lungs per history of present illness Heart per history of present illness Abdomen no nausea vomiting Musculoskeletal occasional muscle and joint pains Psych no anxiety or depression Neuro without recurrent headache or seizures Endocrine no heat or cold intolerance Objective Vital Signs and I&Os Vital Signs Date Time Temp Pulse Resp B/P B/P Pulse O2 O2 Flow FiO2 Mean Ox Delivery Rate 02/15 0845 142/78 02/15 0809 97 Room Air Room Air 02/15 0638 Nasal 1.0L Cannula 02/15 0630 97.5 90 20 141/85 98 Nasal 1.0L Cannula 02/15 0000 Nasal 1.0L Cannula 02/14 2304 98.1 98 20 133/65 96 Nasal 1.0L Cannula 02/14 1622 97 Nasal 1.0L Cannula 02/14 1433 97.7 100 18 160/80 92 Nasal 1.0L Cannula 02/14 1144 88 140/72 Intake & Output 02/15 1600 02/15 0800 02/15 0000 02/14 1600 02/14 0800 02/14 0000 Intake Total 480 480 720 400 Output Total 400 Balance 480 480 320 400 Intake, Oral 480 480 720 400 Output, Urine 400 Patient 215 lb Weight Weight Chair scale Measurement Method Physical Exam: Patient is a well-developed well-nourished female appearing in no acute distress HEENT is unremarkable Neck is supple there is no JVD Lungs inspiratory wheezes bilaterally Heart regular rhythm S1 and S2 are normal no murmurs gallops or rubs Abdomen bowel sounds positive Extremities 1+ edema Current Medications: Current Medications Sig/John Start time Last Medication Dose Route Stop Time Status Admin Acetaminophen 650 MG Q6P PRN 02/12 1600 AC PO Albuterol Sulfate 3 ML EVERY 4 HRS/AWAKE 02/13 0800 AC 02/15 INH 0809 Albuterol Sulfate 2 PUF Q4-6 PRN PRN 02/12 1530 AC INH Azithromycin 250 MG DAILY 02/15 1000 AC 02/15 PO 0843 Azithromycin 500 MG DAILY@1500 02/12 1500 DC 02/14 Sodium Chloride 250 ML IV 1618 Benzonatate 100 MG TID PRN 02/14 0715 AC 02/15 PO 0530 Bisacodyl 5 MG DAILY PRN 02/14 0715 AC PO Budesonide/ 2 PUF BID 02/12 1534 AC 02/15 Formoterol Fumarate INH 0841 Enoxaparin Sodium 40 MG DAILY 02/12 1534 AC 02/15 SC 0842 Furosemide 20 MG ONCE ONE 02/14 1145 DC 02/14 PO 02/14 1146 1313 Guaifenesin 10 ML Q6P PRN 02/13 1000 AC 02/13 PO 1710 Insulin Aspart 0 TIDAC 02/13 1200 AC 02/15 SC 0847 Insulin Aspart 0 AT BEDTIME 02/12 2200 AC 02/14 SC 2215 Insulin Detemir 14 UNITS BID 02/14 2200 AC 02/14 SC 2214 Ipratropium [place] 2.5 ML EVERY 4 HRS/AWAKE 02/13 0800 AC 02/15 INH 0808 Losartan Potassium 50 MG DAILY 02/13 1000 AC 02/15 PO 0845 Morphine Sulfate 2 MG Q4P PRN 02/12 1800 AC IV Nicotine 14 MG DAILY 02/15 1000 AC 02/15 TOP 0843 Nicotine 21 MG DAILY 02/12 1533 DC 02/14 TOP 1133 Omeprazole 40 MG DAILY AC 02/14 1423 AC 02/15 PO 0530 Ondansetron HCl 4 MG ONCE ONE 02/15 0630 DC 02/15 IV 02/15 0631 0631 Oxycodone/ 1 TAB Q6P PRN 02/12 1600 AC Acetaminophen PO Prednisone 40 MG ONCE ONE 02/15 1130 CAN PO 02/15 1131 Prednisone 40 MG DAILY 02/15 1000 AC 02/15 PO 0842 Prednisone 50 MG ONCE ONE 02/14 1130 DC 02/14 PO 02/14 1131 1138 Senna 187 MG AT BEDTIME PRN 02/14 0715 AC PO Senna/Docusate Sodium 1 TAB DAILY NEEDED PRN 02/12 1615 AC PO Tiotropium [place] 1 PUF DAILY 02/14 1925 AC 02/15 INH 0841 Results Last 48 Hrs of Labs/Mics: Laboratory Tests 02/14/17 0720: Anion Gap 11, Estimated GFR > 60, BUN/Creatinine Ratio 32.9 H, CBC w Diff NO MAN DIFF REQ, RBC 3.65 L, MCV 89.6, MCH 29.6, RDW 17.5 H, MPV 9.4, Gran % 72.7 , Lymphocytes % 21.2, Monocytes % 5.0, Eosinophils % 0.8, Basophils % 0.3, Absolute Granulocytes 10.6 H, Absolute Lymphocytes 3.1, Absolute Monocytes 0.7 H, Absolute Eosinophils 0.1, Absolute Basophils 0, PUBS MCHC 33.1 Recent Imaging Studies: CONCLUSIONS Normal size left ventricle. Normal left ventricular ejection fraction visually estimated at > 60%. "pseudonormal" filling pattern of the left ventricle for age (stage 2 diastolic dysfunction). Mild left atrial dilatation. Mild mitral regurgitation. Mild tricuspid regurgitation. Right ventricular systolic pressure estimated to be elevated at 66 mmHg. Darrell Hutton M.D. Assessment/Plan Assessment/Plan 1. Acute exacerbation of COPD improved 2. Mild pulmonary hypertension most likely a combination of obesity and OPD 3. Hypertension improved 4. Obesity 5. Nicotine use 6. Diastolic dysfunction 7. Diabetes Recommendations 1. As discussed with the residents would change her amlodipine to diltiazem given her pulmonary hypertension. Amlodipine would most likely worsen her edema 2. Continue losartan for hypertension and renal protection and diabetes 3. Patient is stable from a cardiac standpoint for discharge. We will follow as an outpatient per her request. Continue telemetry? No
[2017-02-15] MEDS ORDERED: PREDNISONE20 M1 PO ×2 (11:13→12:07)
[2017-02-15] MEDS ORDERED: DILTIAZEM 24HR120 MG PO (11:13)
--- NOTE | 2017-02-15 11:18 | Discharge Summary ---
Visit Information Visit Dates Admission Date: 02/12/17 Discharge Date: 02/15/17 Hospital Course Course Attending Physician: Dr Armando Mckeon Primary Care Physician: REBECCA SANCHEZ,EDMUND Moy Hospital Course: Ms Decker is a 56-year-old female with significant past medical history for asthma , chronic smoker and diabetes who presented to the emergency department on 2016 complaining of dyspnea and dyspnea on exertion as well as a nonproductive cough lasting last 2 weeks. Prior to admission the patient was seen at the emergency department on 02/11/2017 where she was worked up for a pulmonary embolism. This was negative. She subsequently returned to the emergency for additional imaging studies and at this time desaturated to 86% on room air. She was admitted to the hospital for additional care. Below is a summary of the care she received under us. Vitals of the time of admission temperature 98.5, pulse 96, respirations 18, blood pressure 129/80, percent oxygenation 95% on 2 L. COPD exacerbation Vs Bronchiolitis The patient was initially started on 60 mg of prednisone. On day 3 of admission this was changed to 50 mg of prednisone. Prior to discharge she was sent home on a total coverage of 5 days of 40 mg prednisone. The patient was also started on azithromycin IV for anti-inflammatory properties. She was discharged home to receive a total day of 5 days of coverage. Patient was given multiple breathing treatments and we encouraged the use of an incentive spirometer. We maintained oxygen saturations above 90% and provided supplemental oxygen to the patient when needed. She was given a referral for a traffic or system dispatcher. Patient will likely need a sleep study as an outpatient. Lower Extremity Edema While admitted the patient did receive 20 mg of IV Lasix on day 1 and 2 of admission. On day 3 of admission we obtained a cardiology consult. The patient was continued on losartan. At the time of discharge following cardiology recommendations we started the patient on diltiazem 120 mg. An echocardiogram was also performed while the patient was admitted. She was given instructions to follow-up with a supervisor carbon electrodes as an outpatient. History of diabetes At the time of admission the patient was started on Levemir 8 units twice a day and a low dose sliding scale. On day 2 of admission this was changed to 10 units of Levemir and medium dose sliding scale. On day 3 of admission her Levemir was changed to 14 units twice a day. She was continued on the sliding scale. Her hemoglobin A1c was 6.4. At the time of discharge the patient was continued on her metformin and glimepiride however Actos was stopped owing to lower extremity edema. History of nicotine dependence Patient was initially started on a nicotine patch 21 mg. This was subsequently changed to 14 mg. Extensive smoking cessation counseling was also given. The Patient did state her desire to quit smoking. She was given a prescription for nicotine patches at the time of discharge. DVT Prophylaxis Patient was maintain on Lovenox. Full code Allergies: Coded Allergies: ibuprofen (From Advil) (Severe, HIVES 07/17/16) latex (Intermediate, RASH 07/17/16) methylprednisolone (From Solu-Medrol) (Intermediate, GI UPSET 07/17/16) Pertinent Lab Results: Labs white cell count 13.3, sodium 135, proBNP 2150, hemoglobin A1c 6.4 EXAM TYPE: US - US-UNILATERAL VENOUS DOPPLER EXAMINATION: US TRIPLEX LOWER EXTREMITY, LEFT CLINICAL INFORMATION: Left lower extremity swelling and tenderness. COMPARISON: None. TECHNIQUE: Color-flow triplex imaging with spectral analysis and compression Doppler were performed on the lower extremity. FINDINGS: Respiratory variation, normal compression and augmented flow are noted throughout the left lower extremity. The visualized common femoral vein, proximal greater saphenous vein, femoral vein, profunda femoral vein, popliteal vein and visualized mid calf venous segments show no evidence of deep venous thrombosis. There is no Hanna's cyst. IMPRESSION: Normal triplex scan without evidence of deep venous thrombosis involving the lower extremity. DICTATED BY: RICARDO KNOWLES MD EXAM TYPE: RAD - XRY-CHEST XRAY, PA AND LATERAL CLINICAL INFORMATION: Hypoxia and dyspnea. COMPARISON: None TECHNIQUE: 2 views of the chest were obtained. FINDINGS: Both lungs are fairly well-expanded and clear of acute process. The heart size and pulmonary vascularity is normal. There is mild dextroscoliosis of dorsal spine with moderate spondylosis. No lytic or sclerotic process seen. IMPRESSION: Unremarkable chest exam. Mild dextroscoliosis of dorsal spine. DICTATED BY: JOSE CRUZ,FAUSTINA EXAM TYPE: CARD - ECHOCARDIOGRAM Ordering Physician: HECTOR SHEN MD Referring Physician: HECTOR SHEN MD Technologist: Damaris Wong [facility] Room Number: 206 Indications: Rhythm: Sinus Technical Quality: Good FINDINGS Left Ventricle Normal size left ventricle. Normal left ventricular ejection fraction visually estimated at >60%. No obvious regional wall motion abnormalities. "pseudonormal" filling pattern of the left ventricle for age (stage 2 diastolic dysfunction). Right Ventricle Normal right ventricular size and function. Right Atrium Normal right atrial size. Left Atrium Mild left atrial dilatation. Mitral Valve Moderate mitral annular calcification. Mild mitral regurgitation. Aortic Valve Diffuse thickening (sclerosis) of the aortic valve cusps without reduced excursion. No aortic stenosis. No aortic regurgitation. Tricuspid Valve Tricuspid valve not well visualized, grossly normal. Mild tricuspid regurgitation. Right ventricular systolic pressure estimated to be elevated at 66 mmHg. Pulmonic Valve Pulmonic valve not well visualized, grossly normal. Pericardium No pericardial effusion. Great Vessels Normal size aortic root. CONCLUSIONS Normal size left ventricle. Normal left ventricular ejection fraction visually estimated at > 60%. "pseudonormal" filling pattern of the left ventricle for age (stage 2 diastolic dysfunction). Mild left atrial dilatation. Mild mitral regurgitation. Mild tricuspid regurgitation. Right ventricular systolic pressure estimated to be elevated at 66 mmHg. Darrell Hutton M.D. Disposition Summary Disposition Principal Diagnosis: COPD exacerbation Vs Bronchiolitis Additional Diagnosis: Diabetes Hx of Nicotine dependance. Lower extremity edema Discharge Disposition: home or self care Discharge Instructions General Discharge Information Code Status: Full Code Patient's Diet: Diabetic Diet Patient's Activity: As Tolerated Follow-Up Instructions/Appts: Please follow-up with your primary care physician within 7 days of discharge. Please inform your primary care physician of this admission to the hospital. Please follow up with the supervisor carbon electrodes, we have provided you with a referral. Please follow up with the traffic or system dispatcher we have provided you with a referral. You will be required to undergo various tests as an outpatient, including a sleep study. We have also given you a new referral for a new primary care physician. Medications at Discharge Discharge Medications: Stop taking the following medications: Pioglitazone HCl (Pioglitazone HCl) 45 MG TABLET ORAL DAILY Qty = 90 Cephalexin (Keflex) 500 MG CAPSULE ORAL 4 TIMES A DAY Qty = 40 Continue taking these medications: Losartan Potassium (Losartan Potassium) 50 MG TABLET 1 Tablet ORAL DAILY Qty = 90 Comments: Last Taken:02/15/17 Time:8:45 AM Metformin HCl (Metformin HCl) 1,000 MG TABLET 1 Tablet ORAL TWICE DAILY Qty = 180 Comments: NOT GIVEN IN HOSPITAL Famotidine (Pepcid) 20 MG TABLET 1 Tablet ORAL TWICE DAILY Qty = 20 Comments: NOT GIVEN IN HOSPITAL Albuterol Sulfate (Ventolin Hfa) 90 MCG HFA.AER.AD 2 Puff Inhale through mouth EVERY 4-6 HOURS NEEDED as needed for WHEEZING Qty = 1 Comments: NOT GIVEN IN HOSPITAL Glimepiride (Glimepiride) 4 MG TABLET 1 Tablet ORAL TWICE DAILY Comments: NOT GIVEN IN HOSPITAL Ipratropium/Albuterol Sulfate (Iprat-Albut 0.5-3(2.5) MG/3 Ml) 0.5 MG-3 MG (2.5 MG BASE)/3 ML AMPUL.NEB 1 Amp INHALATION 4 TIMES A DAY Comments: Last Taken:02/15/17 Time:11:35 AM Acetaminophen (Acetaminophen) (Unknown Strength) TABLET Unknown Dose ORAL PO as needed for PAIN Comments: NOT GIVEN IN HOSPITAL Naproxen Sodium (Aleve) (Unknown Strength) CAPSULE 1 Tablet ORAL NEEDED as needed for CHRONIC BACK PAIN Comments: NOT GIVEN IN HOSPITAL Start taking the following new medications: Azithromycin (Azithromycin) 250 MG TABLET 1 Tablet ORAL DAILY Qty = 2 No Refills Instructions: . Comments: Last Taken:02/15/17 Time:8:45 AM Prednisone (Prednisone) 20 MG TABLET 2 Tablet ORAL DAILY Qty = 8 No Refills Instructions: .Take two tablets per day, for the next four days then stop. Comments: Last Taken:02/15/17 Time:8:45 AM 40 MG GIVEN Diltiazem HCl (Diltiazem 24HR ER) 120 MG CAP.ER.24H 1 Capsule ORAL DAILY Qty = 30 No Refills Comments: NOT GIVEN IN HOSPITAL Fluticasone/Vilanterol (Breo Ellipta 100-25 Mcg INH) 100 MCG-25 MCG/DOSE BLST.W.DEV 1 Powder Inhale through mouth DAILY as needed for COPD Qty = 30 No Refills Instructions: Use as needed for symptomatic relief. Comments: NOT GIVEN IN HOSPITAL Copies To: REBECCA SANCHEZ,EDMUND Moy; CORRINE CRUZ,JAMAL Smith; NEDA CRUZ,ANTHONY Pedraza; SHAYNA CRUZ,MAGALY
[2017-02-15] MEDS ORDERED: BREO ELLIPTA 11 EACH INH (12:05)
--- NOTE | 2017-02-15 12:20 | NUR ---
AT REST O2 ON ROOM AIR WAS 93%, PT AMBULATED ON ROOM AIR, DESATTED TO 84%, RECOVERED TO 90% IN UNDER 3 MINUTES, WALKED BACK TO ROOM AND ONLY DESATTED THIS TIME TO 89%, RECOVERED TO 90% IN 30 SECONDS.
--- NOTE | 2017-02-15 18:31 | PN- Pulmonary ---
Subjective HPI/Critical Care Issues: Patient states that she feels much better this morning. Her breathing has improved. She denies chest discomfort. Objective Current Medications: Current Medications Sig/John Start time Last Medication Dose Route Stop Time Status Admin Acetaminophen 650 MG Q6P PRN 02/12 1600 DCD PO Albuterol Sulfate 3 ML EVERY 4 HRS/AWAKE 02/13 0800 DCD 02/15 INH 1138 Albuterol Sulfate 2 PUF Q4-6 PRN PRN 02/12 1530 DCD INH Azithromycin 250 MG DAILY 02/15 1000 DCD 02/15 PO 0843 Azithromycin 500 MG DAILY@1500 02/12 1500 DC 02/14 Sodium Chloride 250 ML IV 1618 Benzonatate 100 MG TID PRN 02/14 0715 DCD 02/15 PO 0530 Bisacodyl 5 MG DAILY PRN 02/14 0715 DCD PO Budesonide/ 2 PUF BID 02/12 1534 DCD 02/15 Formoterol Fumarate INH 0841 Enoxaparin Sodium 40 MG DAILY 02/12 1534 DCD 02/15 SC 0842 Guaifenesin 10 ML Q6P PRN 02/13 1000 DCD 02/13 PO 1710 Insulin Aspart 0 TIDAC 02/13 1200 DCD 02/15 SC 1151 Insulin Aspart 0 AT BEDTIME 02/12 2200 DCD 02/14 SC 2215 Insulin Detemir 14 UNITS BID 02/14 2200 DCD 02/15 SC 1148 Ipratropium [place] 2.5 ML EVERY 4 HRS/AWAKE 02/13 0800 DCD 02/15 INH 1138 Losartan Potassium 50 MG DAILY 02/13 1000 DCD 02/15 PO 0845 Morphine Sulfate 2 MG Q4P PRN 02/12 1800 DCD IV Nicotine 14 MG DAILY 02/15 1000 DCD 02/15 TOP 0843 Nicotine 21 MG DAILY 02/12 1533 DC 02/14 TOP 1133 Omeprazole 40 MG DAILY AC 02/14 1423 DCD 02/15 PO 0530 Ondansetron HCl 4 MG ONCE ONE 02/15 0630 DC 02/15 IV 02/15 0631 0631 Oxycodone/ 1 TAB Q6P PRN 02/12 1600 DCD Acetaminophen PO Prednisone 40 MG DAILY 02/15 1000 DCD 02/15 PO 0842 Senna 187 MG AT BEDTIME PRN 02/14 0715 DCD PO Senna/Docusate Sodium 1 TAB DAILY NEEDED PRN 02/12 1615 DCD PO Tiotropium [place] 1 PUF DAILY 02/14 1925 DCD 02/15 INH 0841 Vital Signs & I&O Last 24 Hrs of Vitals and I&O: Vital Signs Date Time Temp Pulse Resp B/P B/P Pulse O2 O2 Flow FiO2 Mean Ox Delivery Rate 02/15 0845 142/78 02/15 0809 97 Room Air Room Air 02/15 0800 93 Room Air 02/15 0638 Nasal 1.0L Cannula 02/15 0630 97.5 90 20 141/85 98 Nasal 1.0L Cannula 02/15 0000 Nasal 1.0L Cannula 02/14 2304 98.1 98 20 133/65 96 Nasal 1.0L Cannula Intake & Output 02/15 1600 02/15 0800 02/15 0000 Intake Total 480 480 Output Total Balance 480 480 Intake, Oral 480 480 Patient 215 lb Weight Weight Chair scale Measurement Method Impression/Plan Impression/Plan Impression/Plan: Physical Exam General Appearance Alert, Oriented X3, Cooperative Skin No Rashes Skin Temp/Moisture Exam: Warm/Dry HEENT Dry Mucous membrares Neck Supple, No JVD, No thryomegaly Lymphatic Cervical nl Cardiovascular Regular Rate, Normal S1, Normal S2, Tachcardic Lungs Clear to Auscultation, Increased BS. Bibasillar Crackles. Abdomen Normal Bowel Sounds, Soft, No Tenderness Neurological Normal Speech, Strength at 5/5 X4 Ext Extremities No Clubbing, No Cyanosis, Normal Pulses, Edema 2+ SIGNIFICANT DATA Echocardiogram reviewed. Show significant pulmonary hypertension. CT scan of the chest reviewed which showed that she does have small airway disease with air trapping, no pulmonary embolism, mildly enlarged mediastinal lymph nodes which appears to be nonspecific and reactive. Echocardiogram did show that she has ejection fraction which is more than 60% but right sided pressures were more than 65. Blood work did not reveal any eosinophilia white count is elevated with a left shift. Hemoglobin low. BUN/creatinine relatively stable BNP was elevated A1c was 6.4. IMPRESSION This is a morbidly obese lady with history of diabetes, more than 45 pack year smoking history, probable obstructive sleep apnea, now comes in with Cough wheezing shortness of breath suggestive of bronchiolitis. She probably does have significant COPD but her chest x-ray does not suggest any hyperinflation and she does not have any emphysema and a CAT scan. She is not terribly symptomatic. She may have mild bronchitis. She has significant pulmonary hypertension with lower extremity edema. His may be related to multiple factors including probable obstructive sleep apnea versus significant lung disease. No evidence suggestive of venous thrombus embolism and she may have a component of diastolic dysfunction. Pedal edema may be related to cor pulmonale versus Actos causing fluid overload as well. She has significant diabetes with well-controlled A1c Ongoing smoking Mediastinal lymphadenopathy which needs follow-up CT in the next 6 months RECOMMENDATION Prednisone 40 mg for 5 days [id number] nebulizer therapy with DuoNeb prn Spiriva 1 puff daily Symbicort 2 puffs twice a day As needed Pro Air Continue diuresis Agree with changing her amlodipine to other calcium channel blockers which might help her pulmonary hypertension Outpatient sleep study Smoking cessation counseling done patient understands the risks and benefits of this.
== END 2017-02-15 13:20 | DRG 189 ==
LOC: ERH 11:34 → ERHI 14:02 → 2NB 14:02 → ENRESERV 15:24 → ENTRNSPT 16:11 → CMPTRNSPT 16:23 → 2NB 16:33 → DELTRNSPT 16:38 → ENPENDDIS 02-15 11:34 → 2NB 02-15 13:20
PROVIDERS: Internal Medicine; Student in an Organized Health Care Education/Training Program; ADMIT Internal Medicine
DX: J96.01 Acute respiratory failure with hypoxia (principal); I27.2 Other secondary pulmonary hypertension; E11.40 Type 2 diabetes mellitus with diabetic neuropathy, unspecified; Z68.41 Body mass index [BMI] 40.0-44.9, adult; I50.9 Heart failure, unspecified; I11.0 Hypertensive heart disease with heart failure; J44.1 Chronic obstructive pulmonary disease with (acute) exacerbation; E87.70 Fluid overload, unspecified; F17.210 Nicotine dependence, cigarettes, uncomplicated; Z86.711 Personal history of pulmonary embolism; Z79.84 Long term (current) use of oral hypoglycemic drugs; R60.0 Localized edema; G47.33 Obstructive sleep apnea (adult) (pediatric); M54.9 Dorsalgia, unspecified; G89.29 Other chronic pain; M79.7 Fibromyalgia; Z82.49 Family history of ischemic heart disease and other diseases of the circulatory system; E11.65 Type 2 diabetes mellitus with hyperglycemia; T38.0X5A Adverse effect of glucocorticoids and synthetic analogues, initial encounter; D72.829 Elevated white blood cell count, unspecified; E66.01 Morbid (severe) obesity due to excess calories; J30.2 Other seasonal allergic rhinitis; R59.0 Localized enlarged lymph nodes
CPT/HCPCS: 1263; 1328; 1425; 1530; 1748; 36415; 82436; 93005; 93010; 93306; 96374; J0456; J1650; J1940; J2405; J3490; J7040

== ENCOUNTER 2017-11-21 04:15 | Observation (INO) | payer OTHER, MEDICARE ==
[~2017-11-21] VITALS: Ht 154.9 cm; Wt 94.8 kg
[~2017-11-21 04:15] MED LIST changes: +ACETAMINOPHEN500 M4 PO; +ALEVE220 M1 PO; +AZITHROMYCIN250 M1 PO; +BREO ELLIPTA 11 EACH INH; +DILTIAZEM 24HR120 MG PO; +IPRAT-ALBUT 0.5-3 ML IH; +PREDNISONE10 M2 PO; +PREDNISONE20 M1 PO; +PROMETH-CODEIN 65 ML PO; +SPIRIVA18 MCG INH; +SYMBICORT 16010.2 GM INH
--- NOTE | 2017-11-21 04:36 | ED CARDIAC/CP/PALPITATIONS ---
History of Present Illness General Chief Complaint: Chest Pain Stated Complaint: "CP" Source: patient, old records, EMS Exam Limitations: no limitations Vital Signs & Intake/Output Vital Signs & Intake/Output Vital Signs Date Time Temp Pulse Resp B/P B/P Pulse O2 O2 Flow FiO2 Mean Ox Delivery Rate 11/22 0500 97.7 103 20 126/60 96 Nasal 3.0L Cannula 11/22 0318 97.5 101 20 120/50 97 Nasal 3.0L Cannula 11/22 0106 97.1 94 20 114/60 99 11/22 0000 97 Nasal 3.0L Cannula 11/21 2235 97.4 88 16 124/78 97 Nasal 3.0L Cannula 11/21 2232 97 Nasal 3.0L Cannula 11/21 1459 98.0 89 19 129/72 98 Room Air 11/21 1251 98.2 81 17 128/72 97 Room Air 11/21 1028 97.8 88 20 122/78 98 Room Air ED Intake and Output 11/22 0000 11/21 1200 Intake Total 300 Output Total 450 Balance -150 Intake, IV 200 Intake, Oral 100 Number 0 Bowel Movements Output, Urine 450 Patient 209 lb 209 lb Weight Weight Reported by Patient Measurement Method Allergies Coded Allergies: ibuprofen (From Advil) (Severe, HIVES 07/17/16) latex (Intermediate, RASH 07/17/16) methylprednisolone (From Solu-Medrol) (Intermediate, INSTANT PAIN AT TOP OF HEAD AND PROJECTILE VOMITING 05/28/17) Triage Note: PT BIBA FROM HOME C/O CHEST BURNING SINCE 2199 LAST NIGHT. PT STATES SHE HAD [employer] FOR DINNER LAST NIGHT AND THEN TOOK SOME TUMS AND TRIED TO LAY DOWN. PT STATES WHEN SHE WENT FROM A SITTING TO A LYING POSITION PT BEGAN TO FEEL A BURNING IN HER CHEST THAT IS NON-RADIATING AND CONSTANT SINCE. PT DENIES SOB, ARM NUMBNESS/TINGLING, NAUSEA/VOMITING, JAW OR BACK PAIN. PT STATES "BURNING SENSATION AND WHEN I BREATHE IN ITS WORSE". PT [facility]IVED WITH [facility]. Triage Nurses Notes Reviewed? yes HPI: Since 10:00 last evening patient has had a burning substernal pain that radiates up into her throat. The pain is been constant since 10 PM. There are no aggravating or mitigating factors. Patient took 2 Tums without any relief. She denies any nausea or vomiting. There is no shortness of breath. There is no orthopnea. There is no diaphoresis. She rates the pain as moderate on the scale. Patient was unable to sleep all night secondary to the pain. (Keely CRUZ,Hever Del Castillo) Reconcile Medications Diltiazem HCl (Diltiazem 24HR ER) 120 MG CAP.ER.24H 1 CAP PO DAILY Pulmonary HTN Glimepiride 4 MG TABLET 1 TAB PO BID DIABETES (Reported) Hydrocodone/Acetaminophen (Hydrocodon-Acetaminophen 5-325) 5 MG-325 MG TABLET 1-2 TAB PO Q4P PRN PAIN Losartan Potassium 50 MG TABLET 1 TAB PO DAILY B/P (Reported) Metformin HCl 1,000 MG TABLET 1 TAB PO BID DM (Reported) (Isabella CRUZ,Abel Hansen) Past History Travel History Traveled to [place] past 21 day No Medical History Any Pertinent Medical History? 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 . BROTHER, ; Cause: Myocardial infarction. Hx Contributory? No (Hever Riggs MD) Review of Systems Review of Systems Constitutional: Reports: no symptoms. EENTM: Reports: no symptoms. Respiratory: Reports: no symptoms. Cardiovascular: Reports: see HPI, chest pain. GI: Reports: no symptoms. Genitourinary: Reports: no symptoms. Musculoskeletal: Reports: no symptoms. Skin: Reports: no symptoms. Neurological/Psychological: Reports: no symptoms. Hematologic/Endocrine: Reports: no symptoms. Immunologic/Allergic: Reports: no symptoms. All Other Systems: Reviewed and Negative (Hever Riggs MD) Physical Exam Physical Exam General Appearance: well developed/nourished, alert, awake, anxious, moderate distress Head: atraumatic, normal appearance Eyes: Bilateral: PERRL, EOMI. Ears, Nose, Throat: normal pharynx, normal ENT inspection, hearing grossly normal Neck: normal inspection, supple, full range of motion Respiratory: normal breath sounds, chest non-tender, no respiratory distress, lungs clear Cardiovascular: regular rate/rhythm, normal peripheral pulses Gastrointestinal: normal bowel sounds, soft, no organomegaly, tenderness (RUQ) Extremities: normal inspection, normal capillary refill, normal range of motion, LLE SLIGHTLY SWOLLEN COMPARED TO TO RLE. SLIGHT ERYTHMEA, NO INCREASED WARMTH. Neurologic/Psych: no motor/sensory deficits, awake, alert, oriented x 3, normal gait, normal mood/affect Skin: intact, normal color, warm/dry Core Measures ACS in differential dx? Yes No ASA d/t Allergy CVA/TIA Diagnosis No Sepsis Present: No Sepsis Focused Exam Completed? No (Keely CRUZ,Hever Del Castillo) Progress Differential Diagnosis: AMI, cholecystitis, CHF/pulm edema, myocarditis, pancreatitis, pericarditis, pneumonia, pneumothorax, pulmonary embolism, PUD/ GERD Plan of Care: Orders Procedure Date/time Status Low Fat Diet 11/22 B Active Wound Care/Dressing 11/23 311 Active Vital Signs 11/22 256 Active Teach/Educate 11/22 256 Active Pain Treatment and Response 11/22 256 Active Nutritional Intake, Monitor 11/22 256 Active Isolation 11/22 256 Active Intake & Output 11/22 256 Active Patient Care Conference 11/22 256 Active Activity/Ambulation 11/22 256 Active TRC EVALUATION (GEN) 11/22 K Active INCENTIVE SPIROMETRY TRX (GEN) 11/22 UNK Active Pathway - chart 11/[address] in observation 11/21 2232 Active Patient Data 11/21 2232 Active VTE Mechanical Prophylaxis 11/21 2232 Active Vital Signs 11/21 2232 Active Intake & Output 11/21 2232 Active Activity/Ambulation 11/21 2232 Active TRANSFER ORDERS 11/22 2119 Complete Code Status 11/22 2119 Active EKG 11/22 2047 Active PATHOLOGY SPECIMEN 11/21 2014 Complete FingerStick- Glucose 11/21 1035 Complete TROPONIN LEVEL 11/21 0845 Complete EKG 11/21 0845 Active Intake & Output 11/21 0422 Complete FingerStick- Glucose 11/21 UNK Active Current Medications Sig/John Start time Last Medication Dose Stop Time Status Admin Diltiazem HCl 120 MG DAILY 11/22 1000 AC (Cardizem CD) Losartan Potassium 50 MG DAILY 11/22 1000 AC (Cozaar) Insulin Aspart 0 TIDAC 11/22 0800 AC (NovoLOG) Hydrocodone Bitart/ 1 TAB Q4P PRN 11/22 0730 AC Acetaminophen (Vicodin) Hydrocodone Bitart/ 2 TAB Q4P PRN 11/22 0730 AC Acetaminophen (Vicodin) Heparin Sodium 5,000 UNIT Q8 11/22 0600 AC 11/22 (Porcine) 0522 Cefazolin Sodium 2 GM IQ8 11/22 0000 AC 11/22 (Kefzol) 11/23 0000 0039 N/A 1 UNIT (No Carrier) Acetaminophen 650 MG Q6P PRN 11/21 2245 AC (Tylenol) Morphine Sulfate 2 MG Q2P PRN 11/21 2245 AC 11/22 (MORPHINE SULFATE) 0523 Ondansetron HCl 4 MG Q6P PRN 11/21 2245 AC (Zofran) Docusate Sodium 100 MG BID 11/21 2200 AC 11/22 (Colace) 0039 Laboratory Tests 11/21/17 0857: Troponin I < 0.01 Diagnostic Imaging: Viewed by Me: Radiology Read. Discussed w/RAD: Radiology Read. CXR Impression: PATIENT: RAFAELA SOLIS PRESENT AGE: 57 PATIENT ACCOUNT NO: [id number] : 56 LOCATION: [facility] ORDERING PHYSICIAN: Hever Riggs MD SERVICE DATE: 11/21/17 EXAM TYPE: RAD - XRY- PORTABLE CHEST XRAY EXAMINATION: CHEST 1 VIEW CLINICAL INFORMATION: Chest pain. COMPARISON: May 28, 2017. TECHNIQUE: An AP view of the chest is provided. FINDINGS: The cardiac silhouette is stable. The mediastinal and hilar contours are unremarkable. There are neither pleural effusions nor pneumothoraces. There is mild hazy opacification within the medial right lung base. The osseous structures are unremarkable. IMPRESSION: Mild hazy opacification within the medial right lung base. This could correspond to atelectasis, though a developing infiltrate cannot be excluded. DICTATED BY: Pavel Oakley MD DATE/ TIME DICTATED:11/21/17523 DIRECTOR FUNDS DEVELOPMENT:MICHAEL DATE/TIME TRANSCRIBED: 11/21/17523 CONFIDENTIAL, DO NOT COPY WITHOUT APPROPRIATE AUTHORIZATION. < Electronically signed in Other Vendor System> SIGNED BY: Pavel Oakley MD 11/21/17527 Initial ED EKG: NSR, no ST T wave changes Prior EKG: unchanged Rhythm Strip: normal sinus rhythm Hand-Off Endorsed To: Abel Mason MD Endorsed Time: 711 Pending: ultrasound Comments: NO RELIEF FROM GI COCTAIL. NO RELIEF FROM NTG. Patient states that when she was admitted in January they noticed that her left leg was swollen compared to her right. Patient states that she was told that it was secondary to the Actos so they took her off of that. (Keely CRUZ,Hever Del Castillo) Radiology Impression: PATIENT: RAFAELA SOLIS PRESENT AGE: 57 PATIENT ACCOUNT NO: [id number] : 56 LOCATION: [facility] ORDERING PHYSICIAN: Hever Riggs MD SERVICE DATE: 11/21/17 EXAM TYPE: US - US-LIMITED ABDOMEN EXAMINATION: US ABDOMEN LIMITED CLINICAL INFORMATION: Right upper quadrant pain. COMPARISON: 10/02/2014 CT scan TECHNIQUE: Real-time imaging of the right upper quadrant abdominal viscera. FINDINGS: PANCREAS: The visualized parts of the head and body of pancreas are within normal limits. The distal body and tail of pancreas are not well visualized due to superimposed bowel gas. LIVER: The liver is enlarged, measures about 19.9 cm in maximum dimension. Moderate to severe increased hepatic parenchymal echogenicity suggests hepatic steatosis. This limits evaluation of the hepatic parenchyma. No intrahepatic biliary ductal dilatation noted. GALLBLADDER: The gallbladder is physiologically distended and contains an 8 mm stone. There is no abnormal wall thickening or pericholecystic fluid. The sonographic Keane's sign is negative per technologist's report. COMMON BILE DUCT: Normal in caliber measuring 0.4 cm in diameter. RIGHT KIDNEY: Normal renal cortical echogenicity. No hydronephrosis. No renal calculi or focal parenchymal lesions. The kidney measures 13.0 cm in maximum dimension. FREE FLUID: None. IMPRESSION: Hepatomegaly and hepatic steatosis. Gallstone without ultrasound evidence of acute cholecystitis. Clinical correlation is suggested. DICTATED BY: Martell Suazo MD DATE/TIME DICTATED:11/21/17821 DIRECTOR FUNDS DEVELOPMENT:MICHAEL DATE/TIME TRANSCRIBED:11/21/17821 CONFIDENTIAL, DO NOT COPY WITHOUT APPROPRIATE AUTHORIZATION. <Electronically signed in Other Vendor System> SIGNED BY: Martell Suazo MD 11/21/17 4530 Comments: 11/21/17 07:10 patient signed out to me by Dr. Riggs at shift change advisor. 11/21/2017 8:42:48 AM I have updated bili on her test results. She is still complaining of a rather severe burning chest pain that originates in the epigastric region and radiates up into the throat. Physical examination reveals tenderness over the right upper quadrant and epigastric regions with brief voluntary guarding but no rebound. She has requested Dr. Starr the general surgeon is required, I have asked community support worker to page Dr. Starr. 11/21/2017 9:42:07 AM expecting a call back from Serg Hemphill MD (Dr. Starr is on vacation). I have updated bili on this. She is still complaining of abdominal pain despite the Pepcid and Carafate ordered. I will order pain medication. 11/21/2017 9:58:10 AM patient's case discussed with Serg Hemphill MD who agrees with narcotic pain relievers and reevaluation. If the patient's pain cannot be adequately controlled then hospitalization will be considered. 11/21/2017 11:43:07 AM I have updated Serg Hemphill MD on this patient's current clinical condition. She is still complaining of a 5-6 out of 10 epigastric abdominal pain radiating to the right flank despite 6 mg of IV morphine. Serg Hemphill MD will evaluate the patient shortly regarding hospitalization. (Isabella CRUZ,Abel Hansen) Departure Departure Disposition: STILL A PATIENT Condition: Stable Clinical Impression Primary Impression: Chest pain, unspecified Qualifiers: Chest pain type: other chest pain Qualified Code: R07.89 - Other chest pain Referrals: Guy CRUZ,Regulo Cuevas (PCP/Family) Departure Forms: Customer Survey General Discharge Information (Keely CRUZ,Hever Del Castillo) Departure Prescriptions: Current Visit Scripts Hydrocodone/Acetaminophen (Hydrocodon-Acetaminophen 5-325) 1-2 TAB PO Q4P PRN PAIN #20 TAB OR/GI Note Spoke With: Kanchan CRUZ,Serg Salas. ED Treatment Decision: RAFAELA SOLIS requires urgent operative management of acute cholecystitis that cannot be performed in the Emergency Room setting. Transport To: [facility] Admission Note Psychiatric Admission: I have seen and evaluated RAFAELA SOLIS. I have also reviewed all the pertinent lab results and diagnostic results. RAFAELA SOLIS will be admitted to our inpatient Psychiatric unit for treatment and care. (Isabella CRUZ,Abel Hansen) Critical Care Note Critical Care Note Critical Care Time: non-applicable (Keely CRUZ,Hever Del Castillo)
[2017-11-21 05:16] LABS: ABSOLUTE BASOPHIL COUNT 0 /CUMM (0.0-0.2); ABSOLUTE EOSINOPHIL COUNT 0.2 /CUMM (0.0-0.7); ABSOLUTE GRANULOCYTE CT 12.4 /CUMM (1.4-6.5); ABSOLUTE LYMPH COUNT 2.3 /CUMM (1.2-3.4); ABSOLUTE MONOCYTE COUNT 0.5 /CUMM (0.10-0.60); BASOPHIL % 0.1 % (0.0-2.0); EOSINOPHIL % 1.4 % (0-5); HEMATOCRIT 40.6 % (37-47); MEAN CORPUSCULAR HGB 28.7 PG (27.0-31.0); MEAN CORPUSCULAR HGB CONC 33.4 G/DL (33.0-37.0); MEAN CORPUSCULAR VOLUME 85.9 FL (81.0-99.0); PLATELET COUNT 214 /CUMM (130-400); RBC DISTRIBUTION WIDTH 14.7 % (11.5-14.5); RED BLOOD CELL CT 4.72 /CUMM (4.20-5.40); WHITE BLOOD CELL COUNT 15.5 /CUMM (4.8-10.8)
--- NOTE | 2017-11-21 05:28 | RADIOLOGY REPORT ---
EXAMINATION: CHEST 1 VIEW CLINICAL INFORMATION: Chest pain. COMPARISON: May 28, 2017. TECHNIQUE: An AP view of the chest is provided. FINDINGS: The cardiac silhouette is stable. The mediastinal and hilar contours are unremarkable. There are neither pleural effusions nor pneumothoraces. There is mild hazy opacification within the medial right lung base. The osseous structures are unremarkable. IMPRESSION: Mild hazy opacification within the medial right lung base. This could correspond to atelectasis, though a developing infiltrate cannot be excluded.
--- NOTE | 2017-11-21 08:30 | ULTRASOUND REPORT ---
EXAMINATION: US ABDOMEN LIMITED CLINICAL INFORMATION: Right upper quadrant pain. COMPARISON: 10/02/2014 CT scan TECHNIQUE: Real-time imaging of the right upper quadrant abdominal viscera. FINDINGS: PANCREAS: The visualized parts of the head and body of pancreas are within normal limits. The distal body and tail of pancreas are not well visualized due to superimposed bowel gas. LIVER: The liver is enlarged, measures about 19.9 cm in maximum dimension. Moderate to severe increased hepatic parenchymal echogenicity suggests hepatic steatosis. This limits evaluation of the hepatic parenchyma. No intrahepatic biliary ductal dilatation noted. GALLBLADDER: The gallbladder is physiologically distended and contains an 8 mm stone. There is no abnormal wall thickening or pericholecystic fluid. The sonographic Keane's sign is negative per technologist's report. COMMON BILE DUCT: Normal in caliber measuring 0.4 cm in diameter. RIGHT KIDNEY: Normal renal cortical echogenicity. No hydronephrosis. No renal calculi or focal parenchymal lesions. The kidney measures 13.0 cm in maximum dimension. FREE FLUID: None. IMPRESSION: Hepatomegaly and hepatic steatosis. Gallstone without ultrasound evidence of acute cholecystitis. Clinical correlation is suggested.
--- NOTE | 2017-11-21 15:00 | History & Physical Pre-Op ---
General Information and HPI History of Present Illness: CC: abdominal pain HPI: 57-year-old smoker diabetic with COPD, made chicken fried steak last night first time in a while and since then has had midepigastric slightly to the right nonradiating to back constant severe worse on deep breath, abdominal pain relieved somewhat with IV analgesics in the ER some nausea no vomiting no fevers no sweats she had a similar episode a few years ago, no particular darkening of urine (ie iced tea) or lightening / loose stools (wright), no FHx of gallbladder problems. Otherwise no changes bowel habits, weight or appetite. I've reviewed the PENDING SALE TO [facility]. No history of GERD, PUD, bleeding problems or issues with anesthesia. Family history positive for hernias cancer esophageal and breast and diabetes Allergies/Medications Allergies: Coded Allergies: ibuprofen (From Advil) (Severe, HIVES 07/17/16) latex (Intermediate, RASH 07/17/16) methylprednisolone (From Solu-Medrol) (Intermediate, INSTANT PAIN AT TOP OF HEAD AND PROJECTILE VOMITING 05/28/17) Home Med list Diltiazem HCl (Diltiazem 24HR ER) 120 MG CAP.ER.24H 1 CAP PO DAILY Pulmonary HTN Glimepiride 4 MG TABLET 1 TAB PO BID DIABETES (Reported) Losartan Potassium 50 MG TABLET 1 TAB PO DAILY B/P (Reported) Metformin HCl 1,000 MG TABLET 1 TAB PO BID DM (Reported) Past History Medical History Neurological: NEUROPATHY EENT: NONE Cardiovascular: hypertension Respiratory: asthma, bronchitis, COPD Gastrointestinal: NONE Hepatic: NONE Renal: NONE Musculoskeletal: chronic back pain, disk herniation, fibromyalgia Psychiatric: NONE Endocrine: diabetes Blood Disorders: NONE Cancer(s): NONE 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 . BROTHER, ; Cause: Myocardial infarction. Psychosocial History Who Do You Live With? child Services at Home None Primary Language: [place] ETOH Use: occasional use Illicit Drug Use: denies illicit drug use Functional Ability ADLs Independent: dressing, eating, toileting, bathing. Ambulation: independent IADLs Independent: shopping, housework, finances, food prep, telephone, transportation , medication admin. Review of Systems Review of Systems: Constitutional: No fever, sweats or weight loss ENMT: No sore throat Cardiovascular: No chest pain, palpitations or leg swelling Respiratory: No shortness of breath, cough, or sputum or dyspnea on exertion GI: No GERD or bleeding per rectum : No dysuria or hematuria Musculoskeletal: No new muscle weakness, bone or joint pain Skin / Breast: No jaundice, rashes or itching Psychiatric: No history of drug or alcohol abuse no depression or anxiety Hematologic / lymphatic system: No problems with excessive bleeding, bruising, or blood clots Exam & Diagnostic Data Last 24 Hrs of Vital Signs/I&O I reviewed Vital Signs Date Time Temp Pulse Resp B/P B/P Pulse O2 O2 Flow FiO2 Mean Ox Delivery Rate 11/21 1251 98.2 81 17 128/72 97 Room Air 11/21 1028 97.8 88 20 122/78 98 Room Air 11/21 0613 97.7 83 20 131/61 98 Room Air 11/21 0425 98 Room Air 11/21 0419 97.6 82 18 149/78 98 Room Air I reviewed Intake & Output 11/21 1600 11/21 0800 11/21 0000 Intake Total Output Total Balance Patient 209 lb Weight Weight Reported by Patient Measurement Method Physical Exam: Constitutional: pleasant, no acute distress, conversant Eyes: sclera anicteric ENMT: ears and nose atraumatic, moist mucous membranes, good dentition, no lip lesions Neck: Supple, trachea is midline, no cervical or supraclavicular adenopathy and no palpable thyromegaly Cardiovascular: S1, S2, no murmurs, no peripheral edema Respiratory: clear to auscultation with normal respiratory effort and no intercostal retractions GI: abdomen soft, just to the right side a right subcostal tender to moderate palpation, nondistended, no palpable hepatosplenomegaly Extremities / lymphatics: symmetrically warm, free range of motion no peripheral edema, no cervical, supraclavicular, axillary, or inguinal adenopathy Musculoskeletal: Did not evaluate gait and station, no digital cyanosis, good muscle strength and tone no atrophy, motor grossly 5 out of 5 throughout Skin: no jaundice, no rashes warm, nondiaphoretic, no areas of erythema or induration Psychiatric: mood and affect are appropriate and alert and oriented to person place and time Assessment/Plan Assessment/Plan: Studies I reviewed the ultrasound on PACS myself from today gallbladder with stone no obvious wall thickening or pericholecystic fluid My impression is symptomatic gallstones. The story is typical. The current standard of care is removal of the gallbladder laparoscopically, preferably not emergently. Once they become symptomatic, gallstones can lead to complications such as cholecystitis, pancreatitis and cholangitis and rarely others, her story does not have hints of this, but based on the constant severe pain she probably has acute cholecystitis. More workup is not needed but we will get a preoperative labs including LFTs. I explained the nature and possibility of retained stones, and rarely, persistent postoperative diarrhea. I angie a diagram illustrating how the stones cause problems and how the anatomy and inflammation can make the surgery more difficult, sometimes requiring an open procedure, and rarely to repair a bile duct injury leading to significant morbidity and even mortality. This in our practice is exceedingly rare, but other more common risks were also discussed such as infection, injury to other surrounding structures such as bowel and blood vessels. We also discussed the potential risks, benefits and alternatives to the procedure and surgery in general, issues that included but were not limited to, anesthetic risks hemorrhage requiring transfusion, the risk of transfusion itself, infection, heart attack, stroke, . I explained the importance of stopping smoking as it pertains to surgery, especially with general anesthesia and healing. As Ranked By This Provider Problem List: 1. Acute cholecystitis
--- NOTE | 2017-11-21 21:33 | Admission Core Measures ---
Acute Coronary Syndrome (CM) ACS Core Measures Acute Coronary Syndrome Diagnosis No Congestive Heart Failure (NEW) CHF Core Measures Congestive Heart Failure Diagnosis No Cerebrovascular Accident (NEW) CVA Core Measures CVA/TIA Diagnosis No Venous Thromboembolism VTE Core Maxi (View Protocol) VTE Risk Factors Surgery No Mechanical VTE Prophylaxis d/t N/A MechProphylax Ordered No VTE Pharm Prophylaxis d/t NA PharmProphylax ordered Problem List As ranked by this Provider includes Assessment & Plan 1. Acute cholecystitis HOME MEDS Home Med List Diltiazem HCl (Diltiazem 24HR ER) 120 MG CAP.ER.24H 1 CAP PO DAILY Pulmonary HTN Glimepiride 4 MG TABLET 1 TAB PO BID DIABETES (Reported) Losartan Potassium 50 MG TABLET 1 TAB PO DAILY B/P (Reported) Metformin HCl 1,000 MG TABLET 1 TAB PO BID DM (Reported)
[2017-11-21 22:35] VITALS: BP 124/78
[2017-11-22 01:06] VITALS: BP 114/60
[2017-11-22 03:18] VITALS: BP 120/50
[2017-11-22 05:00] VITALS: BP 126/60
--- NOTE | 2017-11-22 07:11 | PN- Student ---
JeremySanchezSilvio 11/22/17 0703: Subjective Subjective: PATIENT STAES SHE IS FEELING WELL S/P LAP ALEXEY ON 11/21. NO OVERNIGHT EVENTS. PATIENT REPORTS MILD INCISIONAL PAIN AND MODERATE RUQ PAIN WITH MOVEMENT. PATIENT HAS BEEN OOB TO BATHROOM MULTIPLE TIMES WITH ASSISTANCE SINCE OPERATION. PATIENT REPORTS SHE IS UNABLE TO TAKE PERCOCET IT MAKES HER ITCHY, AND PREFERS MORPHINE OR VICODIN. MORPHINE HAS BEEN GIVEN SINCE SURGERY WITH GOOD EFFECT. PATIENT DENIES N/V, NO FLATUS OR BM SINCE SURGERY. Objective Objective: VITALS: 97.7 DEGREES F, PULSE: 103 BPM, RESP: 20 BREATHS/MIN, BP: 126/60, O2: 96 % 3L NC I/O: GENERAL: NAD, RESTING COMFORTABLY IN BED, ACTIVELY PARTICIPATED IN EXAM ABDOMEN: MILD DISTENTION, MODERATE RUQ TENDERNESS, MILD INCISIONAL PAIN, DRESSING C/D/I, SOFT, NORMOACTIVE BOWEL SOUNDS CARDIAC: TACHY, REGULAR RHYTHM, NO MRG PULM: CTAB, NO ACCESSORY MUSCLE USAGE EXTREMITIES: NO EDEMA, 5/5 STRENGTH IN B/L LE, GROSS SENSATION INTACT Results Results: Laboratory Tests 11/21/17 0857: Troponin I < 0.01 Assessment/Plan Assessment: PATIENT IS A 57 Y/O FEMALE, PMH COPD, DM, HTN, AND SMOKER, POD#1 S/P LAP ALEXEY, RECOVERING WELL WITH APPROPRIATE ABDOMINAL PAIN AND TENDERNESS, AND NO RETURN OF BOWEL FUNCTION. Plan: ACTIVITY: OOB TOLERATED DIET: NPO UNTIL RETURN OF BOWEL FUNCTION PAIN: D/C PERCOCET, PRN MORPHINE DVT PPX: OOB RESUME HOME MEDICATIONS Daniel Morgan 11/22/17 0734: Objective Results Results: Laboratory Tests 11/21/17 0857: Troponin I < 0.01 11/21/17 0614: Urine Color YEL, Urine Clarity HAZY H, Urine pH 5.5, Ur Specific [place] <= 1.005, Urine Protein NEG, Urine Ketones NEG, Urine Nitrite NEG, Urine Bilirubin NEG, Urine Urobilinogen 0.2, Ur Leukocyte Esterase SMALL H, Ur Microscopic SEDIMENT EXAMINED, Urine RBC 1-3, Urine WBC 5-10 H, Ur Epithelial Cells MOD H, Urine Crystals 1+ UR AC H, Urine Bacteria FEW H, Urine Mucus FEW, Urine Hemoglobin NEG, Urine Glucose NEG 11/21/17 0500: Anion Gap 15, Estimated GFR > 60, BUN/Creatinine Ratio 20.0, Glucose 200 H, Calcium 9.8, Total Bilirubin 0.7, AST 19, ALT 30, Alkaline Phosphatase 88, Troponin I < 0.01, Total Protein 6.6, Albumin 3.9, Globulin 2.7, Albumin/ Globulin Ratio 1.4, Amylase 48, Lipase 98, D-Dimer High Sensitivty < 200, CBC w Diff NO MAN DIFF REQ, RBC 4.72, MCV 85.9, MCH 28.7, MCHC 33.4, RDW 14.7 H, MPV 10.0, Gran % 80.0 H, Lymphocytes % 15.0 L, Monocytes % 3.5, Eosinophils % 1.4, Basophils % 0.1, Absolute Granulocytes 12.4 H, Absolute Lymphocytes 2.3, Absolute Monocytes 0.5, Absolute Eosinophils 0.2, Absolute Basophils 0 Resident Review Statement Resident Statement: examined this patient, amended to note Other Findings: Patient seen and examined, agree with above Recovering well status post laparoscopic cholecystectomy and lysis of adhesion Tolerating clears, advance to low fat diet Vicodin for pain Out of bed Anticipate discharge later today if tolerating meals Discussed patient understands and agrees with plan Harjinder Mason 11/22/17 1256: Assessment/Plan Plan: patient was place in observation status overnight s/p lap alexey because of wxtensive lysis of adhesions during surgery, possible d/c later today after attending evaluation
[2017-11-22] MEDS ORDERED: HYDROCODON-ACE1 EAC2 PO ×2 (07:44→13:09)
--- NOTE | 2017-11-22 07:47 | Patient Discharge Instructions ---
Discharge Instructions General Discharge Information You were seen/treated for: Gallstones, acute cholecystitis You had these procedures: Laparoscopic cholecystectomy and lysis of adhesions Watch for these problems: Worsening abdominal pain, nausea, vomiting, fever, flulike illness Do not soak the wound: Yes No bath, but you may shower: Yes Other wound care: Change Band-Aids in 3 days, you may shower Special Instructions: Take pain medication as needed, you may take Motrin or Tylenol as well Diet Continue normal diet: No Recommended Diet: Low Fat Activity Full Activity/No Limits: No Activity Self Limited: Yes Pounds, do NOT lift more than: 10 Other activity limits: No excessive physical activity Acute Coronary Syndrome Inclusion Criteria At DC or during hospital stay patient has or had the following: ACS DIAGNOSIS No Discharge Core Measures Meds if any: Prescribed or Continued at Discharge Meds if any: NOT Prescribed or Continued at Discharge Congestive Heart Failure Inclusion Criteria At DC or during hospital stay patient has or had the following: CHF DIAGNOSIS No Discharge Core Measures Meds if any: Prescribed or Continued at Discharge Meds if any: NOT Prescribed or Continued at Discharge Cerebrovascular accident Inclusion Criteria At DC or during hospital stay patient has or had the following: CVA/TIA Diagnosis No Discharge Core Measures Meds if any: Prescribed or Continued at Discharge Meds if any: NOT Prescribed or Continued at Discharge Venous thromboembolism Inclusion Criteria VTE Diagnosis No VTE Type NONE VTE Confirmed by (Test) NONE Discharge Core Measures - Per Current guidelines, there needs to be overlap - treatment for the first 5 days of Warfarin therapy. - If discharged on Warfarin prior to 5 days of - overlap therapy, the patient will need to be - assessed for post discharge needs including - *Post discharge parental anticoagulation - *Warfarin and/or parental anticoagulation education - *Follow up date to check INR post discharge At least 5 days overlap therapy as Inpatient No Meds if any: Prescribed or Continued at Discharge Note: Overlap Therapy is Warfarin and Anticoagulant Meds if any: NOT Prescribed or Continued at Discharge
[2017-11-22 09:02] VITALS: BP 130/70
--- NOTE | 2017-11-24 14:00 | Operative Report ---
Operative/Inv Procedure Report Surgery Date: 11/21/17 Name of Procedure: Laparoscopic cholecystectomy, extensive lysis of adhesions over 2 hours Pre-Operative Diagnosis: Acute cholecystitis Post-Operative Diagnosis: Same, extensive adhesions Estimated Blood Loss: scant Surgeon/Child Care Specialist: Kanchan CRUZ,Serg VALLADARES Anesthesia: general endotracheal tube Operative/Procedure Note Note: Patient was positioned supine. After successful induction of general anesthesia, the patient's abdomen was clipped, prepped and draped in the usual sterile fashion. Local anesthetic was injected at the top of the umbilicus and then a curved horizontal incision little over a centimeter was made there with a 15 blade and then deepened to the midline fascia which was incised vertically a little over a centimeter. Both sides were secured with 0 Vicryl stay sutures and then the thin peritoneal layer was entered, 10 mm Badillo trocar inserted obliquely to the right, and the gas was turned on to 15 mm. After insufflation and repositioning to reverse Trendelenburg, we inserted the camera bulbar limited by adhesions they were on the right side it took time we had to switch camera was and we had to lyse some adhesions just to get the 3 other trochars in the right subcostal area, first lateral, then mid-subcostal, then subxiphoid. Then we spent over 2-1/2 hours lysing adhesions in the right upper quadrant between the liver edge and the stomach and the omentum and the mesentery of the small bowel and the peritoneum during this time he could not even see the gallbladder which we eventually found it was buried deep intrahepatic the liver itself was rounded enlarged and very friable. After all this there was one spot of the serosa ovalization on the stomach had a high imbricated over with 3 clips. Eventually the gallbladder fundus was grasped from the lateral port and retracted up, but not anle to reach liver edge, and then we dissected out the area of the triangle of Calot while retracting the infundibulum caudally / laterally. First the cystic duct was identified, isolated at the neck, clipped 3 times, divided after the second clip and then in similar fashion the cystic artery was identified medially, dissected and divided. Then the gallbladder was from the liver bed using cautery then lowered into an Endobag and removed through the umbilical incision. The instruments and then the trochars were removed letting the gas escape. The fascial incision was closed with a figure 8 Vicryl then all 4 skin incisions were closed with interrupted subcuticular 4-0 Monocryl, followed by Mastisol Steri-Strips and Bandaids. Estimated blood loss was minimal, lap and sponge counts were correct, wound expectancy was clean-contaminated, IV fluids crystalloid, complications none, patient tolerated the procedure well and was returned to the recovery room in satisfactory condition.
== END 2017-11-22 13:55 ==
LOC: ERH 04:15 → ER-OR 04:22 → PACUH 21:11 → 2NA 21:11 → ENRESERV 21:58 → ENTRNSPT 22:17 → 2NA 22:31 → CMPTRNSPT 22:45 → ENTRNSPT 11-22 13:30 → 2NA 11-22 13:55 → CMPTRNSPT 11-22 14:01
PROVIDERS: Emergency Medicine
DX: K80.10 Calculus of gallbladder with chronic cholecystitis without obstruction (principal); K82.8 Other specified diseases of gallbladder; I10 Essential (primary) hypertension; M79.7 Fibromyalgia; E11.40 Type 2 diabetes mellitus with diabetic neuropathy, unspecified; Z79.84 Long term (current) use of oral hypoglycemic drugs; F17.200 Nicotine dependence, unspecified, uncomplicated
CPT/HCPCS: 1255; 1263; 1328; 1748; 6030; 71045; 81001; 88304; 93005; 93010; 96372; 96374; 96375; 96376; G0378; J0690; J1644; J2405; J3490; J7042